=== PATIENT | female | born 1960 | race Caucasian/White ===

== ENCOUNTER 2017-06-05 16:51 | Inpatient (IN) | payer OTHER ==
[~2017-06-05] VITALS: Ht 167.6 cm; Wt 69.8 kg
[2017-06-05] MEDS ORDERED: PROMETHAZINE HCL INJ 12.5 MG in SODIUM CHLORIDE 0.9% 50ML 50 ML IV STA (17:07)
[2017-06-05] MEDS ORDERED: SODIUM CHLORIDE 0.9% 1000ML 1,000 ML IV STA (17:07)
[2017-06-05] MEDS ORDERED: LORAZEPAM 2 MG/ML 1 ML VIAL IV STA (17:07)
--- NOTE | 2017-06-05 17:12 | EMERGENCY ROOM VISIT NOTE ---
History Report prepared by Aideeibe: Patrizia Murdock Under the Supervision of: Dr. Simone Rush D.O. First contact with patient: 17:03 Chief Complaint: OTHER COMPLAINT Stated Complaint: SHAKES/HEADACHE / [facility] History of Present Illness The patient is a 56 year old female who presents to the Emergency Room with complaints of a persistent illness that started earlier today. She was brought to the ED via EMS. She states she was at work earlier this afternoon when she started to feel "shaky" and experienced a headache. She asked a coworker to check her blood pressure and reports it was around 180 systolic, so she decided to go to a local urgent care clinic in [place]. At the urgent care clinic, she was referred to the ED for further evaluation. She reports both of her legs feel "tingly". The patient admits to a history of anxiety and states she takes daily medication for it. She notes today's symptoms do not feel like her usual anxiety attack. The patient denies any recent fevers or cough or cold symptoms. Source of History: patient Onset: Earlier today Position: other (global) Timing: other (persistent) Associated Symptoms: + numbness (numbness in both legs), No fevers, No cough (cough or cold symptoms) Review of Systems See HPI for pertinent positives & negatives. A total of 10 systems reviewed and were otherwise negative. Past Medical & Surgical Medical Problems: (1) Anxiety (2) Diverticulitis (3) Hypertension (4) Insomnia (5) Stroke (6) Stroke-like symptoms Surgical Problems: (1) History of appendectomy (2) History of total hysterectomy Social History Smokeless Tobacco Use: No Alcohol Use: none Drug Use: none Marital Status: Housing Status: lives with family Occupation Status: employed Current/Historical Medications Scheduled Alprazolam (Xanax), 1 MG PO HS Alprazolam (Xanax), 0.5 MG PO UD Aspirin (Aspirin Ec), 81 MG PO DAILY Atorvastatin (Lipitor), 10 MG PO DAILY Allergies Coded Allergies: Penicillins (Verified Allergy, Intermediate, Hives, 06/05/17) Venlafaxine (Verified Allergy, Intermediate, Hives, 06/05/17) Physical Exam Vital Signs Date Time Temp Pulse Resp B/P (MAP) Pulse Ox O2 Delivery O2 Flow Rate FiO2 06/05/17 19:00 62 16 117/80 97 Room Air 7/14/17 17:12 60 06/05/17 17:09 99 Room Air 06/05/17 17:09 99 Room Air 06/05/17 17:03 36.8 74 18 130/93 99 Room Air Physical Exam GENERAL: Patient is awake, alert, very anxious appearing, but in no acute distress and patient is resting comfortably. EYES: The conjunctivae are clear. The pupils are round and reactive. EARS, NOSE, MOUTH AND THROAT: The nose is without any evidence of any deformity. Mucous membranes are moist tongue is midline NECK: The neck is nontender and supple. RESPIRATORY: Normal respiratory effort is noted there is no evidence of wheezing rhonchi or rales CARDIOVASCULAR: Regular rate and rhythm noted there no murmurs rubs or gallops normal S1 normal S2 GASTROINTESTINAL: The abdomen is soft. Bowel sounds are present in all quadrants. Abdomen is nontender PELVIS: The Pelvis is stable. No tenderness to palpation is noted. BACK: No midline tenderness or or step-off noted range of motion in flexion extension as well as rotation no signs of muscle spasm noted MUSCULOSKELETAL/EXTREMITIES: There is no evidence of gross deformity full range of motion is noted in the hips and shoulders SKIN: There is no obvious evidence of any rash. There are no petechiae, pallor or cyanosis noted. NEUROLOGIC: Patient is awake, alert and oriented x3 The patient is tremulous. Strength is symmetric patellar reflexes are 2+ bilaterally Medical Decision & Procedures ER Provider Diagnostic Interpretation: Radiology results as stated below per my review and radiologist interpretation: CHEST ONE VIEW PORTABLE CLINICAL HISTORY: Altered mental status. Weakness. COMPARISON STUDY: No previous studies for comparison. FINDINGS: There is no pneumothorax or pleural effusion. There is no consolidation to suggest pneumonia. Pulmonary vascularity is normal. There is an elongated 1.7 x 0.6 cm nodular density which projects superolateral to the right hilum. Cardiac size is normal. Mediastinal contours are normal. IMPRESSION: 1. No acute cardiopulmonary findings. 2. 1.7 x 0.6 cm elongated nodular density which projects superolateral to the right hilum. This could reflect artifact, vessel or a pulmonary nodule. Follow-up nonemergent PA and shallow oblique radiographs of the chest are recommended. Electronically signed by: Km Velasquez M.D. 06/05/2017 5:28 PM HEAD WITHOUT CONTRAST (CT) CT DOSE: 537.48 mGy.cm HISTORY: Mental status change EVALUATE ALTERED MENTAL STATUS/WEAKNESS TECHNIQUE: Multiaxial CT images of the head were performed without the use of intravenous contrast. Comparison: None. Findings: The paranasal sinuses and mastoid air cells are clear. The calvarium and skull base are intact. The ventricles and sulci are within normal limits. There is no mass, hematoma, or midline shift.. 8 mm hypodensity of the left paraventricular region. There is related to a subacute infarct. No evidence for acute intracranial hemorrhage. Impression: 8 mm hypodensity left periventricular region suggestive of a subacute infarct. No evidence for acute intracranial hemorrhage Electronically signed by: Eleazar Bay M.D. 06/05/2017 6:09 PM Laboratory Results 06/05/17 17:00 Red Blood Count 4.37, Mean Corpuscular Volume 94.7, Mean Corpuscular Hemoglobin 30.9, Mean Corpuscular Hemoglobin Concent 32.6, Mean Platelet Volume 10.1, Neutrophils (%) (Auto) 66.8, Lymphocytes (%) (Auto) 24.8, Monocytes (%) (Auto) 7.3, Eosinophils (%) (Auto) 0.7, Basophils (%) (Auto) 0.4, Neutrophils # (Auto) 5.11, Lymphocytes # (Auto) 1.90, Monocytes # (Auto) 0.56, Eosinophils # (Auto) 0.05, Basophils # (Auto) 0.03 06/05/17 17:00 Test 06/05/17 17:00 06/05/17 18:00 White Blood Count 7.65 K/uL (4.8-10.8) Red Blood Count 4.37 M/uL (4.2-5.4) Hemoglobin 13.5 g/dL (12.0-16.0) Hematocrit 41.4 % (37-47) Mean Corpuscular Volume 94.7 fL (80-100) Mean Corpuscular Hemoglobin 30.9 pg (25-34) Mean Corpuscular Hemoglobin Concent 32.6 g/dl (32-36) Platelet Count 264 K/uL (130-400) Mean Platelet Volume 10.1 fL (7.4-10.4) Neutrophils (%) (Auto) 66.8 % Lymphocytes (%) (Auto) 24.8 % Monocytes (%) (Auto) 7.3 % Eosinophils (%) (Auto) 0.7 % Basophils (%) (Auto) 0.4 % Neutrophils # (Auto) 5.11 K/uL (1.4-6.5) Lymphocytes # (Auto) 1.90 K/uL (1.2-3.4) Monocytes # (Auto) 0.56 K/uL (0.11-0.59) Eosinophils # (Auto) 0.05 K/uL (0-0.5) Basophils # (Auto) 0.03 K/uL (0-0.2) RDW Standard Deviation 45.5 fL (36.4-46.3) RDW Coefficient of Variation 13.1 % (11.5-14.5) Immature Granulocyte % (Auto) 0.0 % Immature Granulocyte # (Auto) 0.00 K/uL (0.00-0.02) Prothrombin Time 10.5 SECONDS (9.0-12.0) Prothromb Time International Ratio 1.0 (0.9-1.1) Activated Partial Thromboplast Time 24.9 SECONDS (21.0-31.0) Partial Thromboplastin Ratio 1.0 Anion Gap 11.0 mmol/L (3-11) Est Creatinine Clear Calc Drug Dose 81.8 ml/min Estimated GFR () 109.6 Estimated GFR (Non- 94.6 BUN/Creatinine Ratio 10.8 (10-20) Calcium Level 9.4 mg/dl (8.5-10.1) Magnesium Level 2.4 mg/dl (1.8-2.4) Total Bilirubin 0.3 mg/dl (0.2-1) Direct Bilirubin < 0.1 mg/dl (0-0.2) Aspartate Amino Transf (AST/SGOT) < 3 U/L (15-37) Alanine Aminotransferase (ALT/SGPT) 18 U/L (12-78) Alkaline Phosphatase 64 U/L (45-117) Troponin I < 0.015 ng/ml (0-0.045) Total Protein 7.2 gm/dl (6.4-8.2) Albumin 4.2 gm/dl (3.4-5.0) Thyroid Stimulating Hormone (TSH) 2.090 uIu/ml (0.300-4.500) Lyme Disease IgG Antibody NEG (NEG) Lyme Disease IgM Antibody NEG (NEG) Urine Color YELLOW Urine Appearance CLEAR (CLEAR) Urine pH 8.0 (4.5-7.5) Urine Specific [place] 1.008 (1.000-1.030) Urine Protein NEG (NEG) Urine Glucose (UA) NEG (NEG) Urine Ketones NEG (NEG) Urine Occult Blood NEG (NEG) Urine Nitrite NEG (NEG) Urine Bilirubin NEG (NEG) Urine Urobilinogen NEG (NEG) Urine Leukocyte Esterase NEG (NEG) Laboratory results per my review. Medications Administered Medications (Trade) Dose Ordered Sig/Shania Route Start Time Stop Time Status Last Admin Dose Admin Sodium Chloride 1,000 ml @ 999 mls/hr Q1H1M STAT IV 06/05/17 17:07 06/05/17 18:07 DC 06/05/17 17:54 999 MLS/HR Promethazine HCl 12.5 mg/Sodium Chloride 50.5 ml @ 204 mls/hr NOW STAT IV 06/05/17 17:07 06/05/17 17:21 DC 06/05/17 17:54 204 MLS/HR Lorazepam (Ativan Inj) 0.5 mg NOW STAT IV 06/05/17 17:07 06/05/17 17:09 DC 06/05/17 17:54 0.5 MG ECG Indication: weakness Rate (beats per minute): 71 Rhythm: normal sinus (normal sinus rhythm) Findings: RBBB, other (No PVC's) Comparison ECG Date: no prior available ED Course 1706: The patient was evaluated in room A3. A complete history and physical examination were performed. 1707: Lorazepam 0.5 mg IV, Promethazine HCl 12.5 mg/NSS 50.5 ml @ 204 mls/hr IV , NSS 1000 ml @ 999 mls/hr IV. 1829: I reevaluated the patient. She is resting comfortably. I discussed her results and my recommendation she remain in the hospital for further evaluation and management and she verbalized complete understanding and agreement. 1835: I discussed the patients case with Dr. Benítez, [facility] Hospitalist. The patient will be further evaluated. Medical Decision Medication Reconciliation: I attest that I have personally reviewed the patient' s current medications list. Blood pressure screening: Patient was found to have an elevated blood pressure and was referred to their primary doctor for recheck and further treatment. Prior records/ancillary studies reviewed and summarized above. Nursing notes reviewed. Differential diagnosis: Etiologies such as metabolic, infection, hypo/hyperglycemia, electrolyte abnormalities, cardiac sources, intracerebral event, toxicologic, neurologic, as well as others were entertained. The patient is a 56-year-old female who presented to the emergency department for an evaluation of headache. The patient describes an acute headache which began earlier in the day. She was evaluated and an urgent care center and sent to the emergency department for further evaluation. She had no focal neurologic deficit but because her symptoms and reported elevated blood pressure CT of the brain was obtained. The CT did show some signs of a possible subacute infarct. I discussed the patient's laboratory and radiographic studies with her. She was treated with IV fluids and IV antiemetics in the emergency department. She was also given medication for anxiety. On subsequent reevaluation her condition had not deteriorated. I discussed the patient's case with the on-call [facility] hospitalist group. They've agreed to evaluate the patient in emergency apartment for further management and disposition. Consults Time Called: 1829 Consulting Physician: Dr. Benítez, [facility] Hospitalist Returned Call: 1834 I discussed the patients case with Dr. Del Rosario [facility] Hospitalist. The patient will be further evaluated. Impression Primary Impression: CVA (cerebral vascular accident) Additional Impressions: Abnormal chest x-ray Acute headache Scribe Attestation The scribe's documentation has been prepared under my direction and personally reviewed by me in its entirety. I confirm that the note above accurately reflects all work, treatment, procedures, and medical decision making performed by me. Departure Information Dispostion Being Evaluated By Hospitalist Referrals No Doctor, Assigned (PCP) Patient Instructions My [facility] Health Problem Qualifiers
[2017-06-05 17:15] LABS: BASO % 0.4 %; BASO ABS # 0.03 K/uL (0-0.2); COMPLETE YES; EOS % 0.7 %; HEMATOCRIT 41.4 % (37-47); LYMPH % 24.8 %; MEAN CELL VOLUME 94.7 fL (80-100); MEAN CORPUSCULAR HEMOGLOBIN 30.9 pg (25-34); MEAN CORPUSCULAR HGB CONC 32.6 g/dl (32-36); MEAN PLATELET VOLUME 10.1 fL (7.4-10.4); MONO % 7.3 %; NEUT % 66.8 %; PLATELET COUNT 264 K/uL (130-400); RED BLOOD COUNT 4.37 M/uL (4.2-5.4); WHITE BLOOD COUNT 7.65 K/uL (4.8-10.8)
[2017-06-05 17:23] LABS: PROTHROMBIN TIME (PATIENT) 10.5 SECONDS (9.0-12.0)
--- NOTE | 2017-06-05 17:29 | DIAGNOSTIC IMAGING REPORT ---
CHEST ONE VIEW PORTABLE CLINICAL HISTORY: Altered mental status. Weakness. COMPARISON STUDY: No previous studies for comparison. FINDINGS: There is no pneumothorax or pleural effusion. There is no consolidation to suggest pneumonia. Pulmonary vascularity is normal. There is an elongated 1.7 x 0.6 cm nodular density which projects superolateral to the right hilum. Cardiac size is normal. Mediastinal contours are normal. IMPRESSION: 1. No acute cardiopulmonary findings. 2. 1.7 x 0.6 cm elongated nodular density which projects superolateral to the right hilum. This could reflect artifact, vessel or a pulmonary nodule. Follow-up nonemergent PA and shallow oblique radiographs of the chest are recommended. Electronically signed by: Km Velasquez M.D. 06/05/2017 5:28 PM Dictated Date/Time: 06/05/2017 5:25 PM
[2017-06-05] MEDS ORDERED: ASPI81TA28 PO (17:38)
[2017-06-05 17:43] LABS: ALT/SGPT 18 U/L (12-78); AST/SGOT < 3 U/L (15-37); BLOOD UREA NITROGEN 8 mg/dl (7-18); BUN/CREATININE RATIO 10.8 (10-20); CALCIUM 9.4 mg/dl (8.5-10.1); CARBON DIOXIDE 21 mmol/L (21-32); CHLORIDE 110 mmol/L (98-107); CREATININE 0.71 mg/dl (0.60-1.20); GLUCOSE 91 mg/dl (70-99); MAGNESIUM 2.4 mg/dl (1.8-2.4); SODIUM 142 mmol/L (136-145)
[2017-06-05] MEDS ORDERED: ATOR10TA88 PO (17:48)
[2017-06-05] MEDS ORDERED: ALPR1TAB3 PO (17:48)
[2017-06-05 17:54] LABS: ALKALINE PHOSPHATASE 64 U/L (45-117)
--- NOTE | 2017-06-05 18:10 | DIAGNOSTIC IMAGING REPORT ---
HEAD WITHOUT CONTRAST (CT) CT DOSE: 537.48 mGy.cm HISTORY: Mental status change EVALUATE ALTERED MENTAL STATUS/WEAKNESS TECHNIQUE: Multiaxial CT images of the head were performed without the use of intravenous contrast. Comparison: None. Findings: The paranasal sinuses and mastoid air cells are clear. The calvarium and skull base are intact. The ventricles and sulci are within normal limits. There is no mass, hematoma, or midline shift.. 8 mm hypodensity of the left paraventricular region. There is related to a subacute infarct. No evidence for acute intracranial hemorrhage. Impression: 8 mm hypodensity left periventricular region suggestive of a subacute infarct. No evidence for acute intracranial hemorrhage The above report was generated using voice recognition software. It may contain grammatical, syntax or spelling errors. Electronically signed by: Eleazar Bay M.D. 06/05/2017 6:09 PM Dictated Date/Time: 06/05/2017 6:06 PM
[2017-06-05 18:19] LABS: URINE APPEARANCE CLEAR (CLEAR); URINE BILIRUBIN NEG (NEG); URINE COLOR YELLOW; URINE NITRITE NEG (NEG); URINE SPECIFIC GRAVITY 1.008 (1.000-1.030); UROBILINOGEN NEG (NEG)
[2017-06-05 18:22] LABS: MANUAL MICROSCOPIC REQUIRED? NO; REVIEW REQ? NO
[2017-06-05 18:40] LABS: LYME DISEASE AB IGG NEG (NEG); LYME DISEASE AB IGM NEG (NEG)
--- NOTE | 2017-06-05 20:11 | History and Physical ---
History & Physical Date & Time of Service: Jun 05, 2017 at 20:09 Chief Complaint: Shakes/Headache / [facility] Primary Care Physician: No Doctor, Assigned History of Present Illness Source: patient 56 yo F, smoker, no previous stroke, noticed earlier today she had a severe headache, frontal, 8/10, which then progressed to full body weakness. She is unable to say if it was left or right sided. At the time she was doing her usual work. She said the symptoms lasted about 15 minutes, and took a while to go away. The weakness was associated with tremulous activity of all her limbs. She reports she has not slept well this week, because she works at a [employer]. She went to an Urgent Care, where they were concerned for [place], and was transferred here. Headache still persists but weakness has resolved. Past Medical/Surgical History PMHx: - None PSHx: - None Family History No FHx of stroke, [place], diabetes, or HTN Social History Smoking Status: Current Some Day Smoker (Smokes about 5 cigarettes/ day) Smokeless Tobacco Use: No Drug Use: none Marital Status: Housing status: lives with family Occupational Status: employed Allergies Coded Allergies: Penicillins (Verified Allergy, Intermediate, Hives, 06/05/17) Venlafaxine (Verified Allergy, Intermediate, Hives, 06/05/17) Home Medications Scheduled Alprazolam (Xanax), 1 MG PO HS Alprazolam (Xanax), 0.5 MG PO UD Atorvastatin (Atorvastatin Calcium), 80 MG PO HS Clopidogrel Bisulfate (Clopidogrel), 75 MG PO QAM Nicotine (Nicoderm Cq 7 Mg Patch), 1 PATCH TD QAM Scheduled PRN Oxycodone/Acetaminophen 5MG/325MG (Percocet 5MG/325MG), 1 TAB PO Q6HWA PRN for Pain Review of Systems See HPI for pertinent positives & negatives. A total of 10 systems reviewed and were otherwise negative. Physical Exam Vital Signs Date Time Temp Pulse Resp B/P (MAP) Pulse Ox O2 Delivery O2 Flow Rate FiO2 06/05/17 19:00 62 16 117/80 97 Room Air 06/05/17 17:12 60 06/05/17 17:09 99 Room Air 06/05/17 17:09 99 Room Air 06/05/17 17:03 36.8 74 18 130/93 99 Room Air General Appearance: WD/WN, no apparent distress Head: normocephalic, atraumatic Eyes: normal inspection, PERRL ENT: hearing grossly normal Neck: supple, no JVD Respiratory/Chest: lungs clear, normal breath sounds, no respiratory distress Cardiovascular: regular rate, rhythm, no murmur, normal peripheral pulses Abdomen/GI: normal bowel sounds, non tender, soft Back: no CVA tenderness, no muscle spasm, normal range of motion Extremities/Musculoskelatal: normal inspection, no calf tenderness, no pedal edema Neurologic/Psych: behavioral health professional II-XII nml as tested, no motor/sensory deficits, alert Skin: no rash Diagnostics Laboratory Results Results Past 24 Hours Test 06/05/17 17:00 06/05/17 18:00 06/05/17 20:02 Range/Units White Blood Count 7.65 4.8-10.8 K/uL Red Blood Count 4.37 4.2-5.4 M/uL Hemoglobin 13.5 12.0-16.0 g/dL Hematocrit 41.4 37-47 % Mean Corpuscular Volume 94.7 80-100 fL Mean Corpuscular Hemoglobin 30.9 25-34 pg Mean Corpuscular Hemoglobin Concent 32.6 32-36 g/dl Platelet Count 264 130-400 K/uL Mean Platelet Volume 10.1 7.4-10.4 fL Neutrophils (%) (Auto) 66.8 % Lymphocytes (%) (Auto) 24.8 % Monocytes (%) (Auto) 7.3 % Eosinophils (%) (Auto) 0.7 % Basophils (%) (Auto) 0.4 % Neutrophils # (Auto) 5.11 1.4-6.5 K/uL Lymphocytes # (Auto) 1.90 1.2-3.4 K/uL Monocytes # (Auto) 0.56 0.11-0.59 K/uL Eosinophils # (Auto) 0.05 0-0.5 K/uL Basophils # (Auto) 0.03 0-0.2 K/uL RDW Standard Deviation 45.5 36.4-46.3 fL RDW Coefficient of Variation 13.1 11.5-14.5 % Immature Granulocyte % (Auto) 0.0 % Immature Granulocyte # (Auto) 0.00 0.00-0.02 K/uL Prothrombin Time 10.5 9.0-12.0 SECONDS Prothromb Time International Ratio 1.0 0.9-1.1 Activated Partial Thromboplast Time 24.9 21.0-31.0 SECONDS Partial Thromboplastin Ratio 1.0 Sodium Level 142 136-145 mmol/L Potassium Level 4.0 3.5-5.1 mmol/L Chloride Level 110 98-107 mmol/L Carbon Dioxide Level 21 21-32 mmol/L Anion Gap 11.0 3-11 mmol/L Blood Urea Nitrogen 8 7-18 mg/dl Creatinine 0.71 0.60-1.20 mg/dl Est Creatinine Clear Calc Drug Dose 81.8 ml/min Estimated GFR () 109.6 Estimated GFR (Non- 94.6 BUN/Creatinine Ratio 10.8 10-20 Random Glucose 91 70-99 mg/dl Calcium Level 9.4 8.5-10.1 mg/dl Magnesium Level 2.4 1.8-2.4 mg/dl Total Bilirubin 0.3 0.2-1 mg/dl Direct Bilirubin < 0.1 0-0.2 mg/dl Aspartate Amino Transf (AST/SGOT) < 3 15-37 U/L Alanine Aminotransferase (ALT/SGPT) 18 12-78 U/L Alkaline Phosphatase 64 45-117 U/L Troponin I < 0.015 0-0.045 ng/ml Total Protein 7.2 6.4-8.2 gm/dl Albumin 4.2 3.4-5.0 gm/dl Thyroid Stimulating Hormone (TSH) 2.090 0.300-4.500 uIu/ml Lyme Disease IgG Antibody NEG NEG Lyme Disease IgM Antibody NEG NEG Urine Color YELLOW Urine Appearance CLEAR CLEAR Urine pH 8.0 4.5-7.5 Urine Specific [place] 1.008 1.000-1.030 Urine Protein NEG NEG Urine Glucose (UA) NEG NEG Urine Ketones NEG NEG Urine Occult Blood NEG NEG Urine Nitrite NEG NEG Urine Bilirubin NEG NEG Urine Urobilinogen NEG NEG Urine Leukocyte Esterase NEG NEG Diagnostic Radiology HEAD CT: Impression: 8 mm hypodensity left periventricular region suggestive of a subacute infarct. No evidence for acute intracranial hemorrhage CXR: IMPRESSION: 1. No acute cardiopulmonary findings. 2. 1.7 x 0.6 cm elongated nodular density which projects superolateral to the right hilum. This could reflect artifact, vessel or a pulmonary nodule. Follow-up nonemergent PA and shallow oblique radiographs of the chest are recommended. EKG Normal sinus rhythm Right bundle branch block Abnormal ECG No previous ECGs available Impression Assessment and Plan 56 yo F with risk factors of smoking & hyperlipidemia who presents with headache and full body weakness, found to have a subacute stroke. Stroke - Will continue 81mg Aspirin - Neurology consult - Will check an HbA1c & lipids to assess modifiable risk factors - MRI Brain - Telemetry monitoring - Will obtain carotid dopplers and cardiac echo - Will defer checking hypercoaguable workup to primary service / after discussion w/Neuro as patient may have one, but is not under 50, and has other known risk factor (smoking & hyperlipidemia) Hyperlipidemia - Will increase statin from 10mg Lipitor to 80mg Headache - Tylenol / Percocet PRN - Continue to monitor ?Pulmonary nodule on CXR - Will get 2 view / Oblique CXR in AM VTE: Lovenox CODE STATUS: FULL Dispo: Telemetry Attending Addendum: I physically seen and examined this patient, have supervised the medical residents activities, and agree with the H&P as noted above with the following exceptions: NONE The patient is awake, well-developed and adequately nourished, alert and oriented 3 but slow to respond, normocephalic and atraumatic, lying in bed and in no acute distress. Primary complaint is frontal headache. HEENT--PERRL, EOMI, mucous membranes and oropharynx dry. Neck--supple, no JVD or bruits, thyroid normal, trachea midline, no adenopathy. Heart--normal S1 and S2, no extra beats, no murmurs, rubs or gallops. Lungs--clear bilaterally with good air movement, no respiratory distress, no accessory muscle use. Abdomen--normal bowel sounds and soft, nontender and nondistended, no hernias or masses, no organomegaly. Extremities--no cyanosis, clubbing or edema. There are good distal pulses b/l. Dermatologic--normal skin turgor, normal color, warm and dry, no abnormal lymph nodes, no rash. Neurologic--cranial nerves II through XII grossly intact, motor and sensory examination normal. Rheumatologic--normal range of motion, nontender, muscles and joints. Psychiatric--normal affect. Assessment and Plan: 1. Subacute 8mm left periventricular infarct--admitted through CVA without TPA protocol. Order MRI brain combo, MRA neck combo, MRA of head without contrast. The patient will be admitted to telemetry for serial cardiac enzymes, cardiac rhythm monitoring and a 2-D echocardiogram with Dopplers. Consult nephrology social worker, PT, OT, speech, neurology. Check hemoglobin A1c and fasting lipid profile. Continue aspirin 81 mg by mouth daily. High-dose statin. Level of Care Telemetry Resuscitation Status FULL RESUSCITATION VTE Prophylaxis VTE Risk Assessment Done? Y/N: Yes Risk Level: Moderate Resident Tracking Resident Involvement: Resident Care Provided Care Provided: Adult Hospital Medicine
[2017-06-05] MEDS ORDERED: PHARMACIST DISCHARGE MED REC CONSULT PRN (20:15)
[2017-06-05] MEDS ORDERED: ZOLPIDEM TARTRATE 5 MG TAB PO PRN (20:15)
[2017-06-05] MEDS ORDERED: ALUMINUM/MAGNESIUM/SIMETH (MAALOX MAX) 30 ML UDC PO PRN (20:15)
[2017-06-05] MEDS ORDERED: POLYETHYLENE (MIRALAX) 17 GM PACK PO PRN (20:15)
[2017-06-05] MEDS ORDERED: MAGNESIUM HYDROXIDE SUSP 30 ML UDC PO PRN (20:15)
[2017-06-05] MEDS ORDERED: ACETAMINOPHEN 325 MG TAB PO PRN (20:15)
[2017-06-05] MEDS ORDERED: NITROGLYCERIN 0.4 MG SL PER TAB CHARGE SL PRN (20:15)
[2017-06-05] MEDS: ONDANSETRON INJ 2 MG/ML 2 ML VIAL IV PRN (20:45)
--- NOTE | 2017-06-05 21:44 | DIAGNOSTIC IMAGING REPORT ---
BRAIN COMBO CLINICAL HISTORY: Stroke COMPARISON STUDY: CT same date TECHNIQUE: Utilizing a 1.5 Haley magnet and dedicated coil, multiplanar, multiecho imaging of the brain was performed pre and postcontrast administration. IV administration of 8.5 mL of Gadavist contrast was uneventful. FINDINGS: No evidence for an acute ischemic event on diffusion-weighted imaging. CT findings appear to relate to old small periventricular infarct. Multiple foci of increased signal on the periventricular deep white matter regions are present. This may be consistent with chronic small vessel change. No significant postcontrast enhancement. Ventricular system is midline. IMPRESSION: 1. No evidence for an acute ischemic process. 2. Considerable chronic small vessel change throughout both cerebral hemispheres. 3. No evidence for abnormal postcontrast enhancement. The above report was generated using voice recognition software. It may contain grammatical, syntax or spelling errors. Electronically signed by: Eleazar Bay M.D. 06/05/2017 9:42 PM Dictated Date/Time: 06/05/2017 9:39 PM
[2017-06-05 22:05] VITALS: BP 124/78; PULSE 60; TEMP 36.7; O2SAT 96; Ht 167.6 cm; Wt 69.8 kg
[2017-06-05] MEDS ORDERED: MoRPHine SULFATE 2 MG/ML CARP IV STA (22:33)
[2017-06-05] MEDS: ATORVASTATIN 40 MG TAB PO SCH (23:33)
[2017-06-05 23:59] VITALS: O2SAT 96
[2017-06-06] VITALS (10 sets, daily range): BP systolic 105–123; BP diastolic 61–81; PULSE 59–66; TEMP 36.7–36.9; O2SAT 95–97
[2017-06-06] MEDS: MoRPHine SULFATE 2 MG/ML CARP IV PRN ×2 (02:19→07:15)
--- NOTE | 2017-06-06 05:42 | DIAGNOSTIC IMAGING REPORT ---
CAROTID DOPPLER NECK ART HISTORY: Mental status change Stroke COMPARISON: None. TECHNIQUE: Real-time, grayscale, and color Doppler sonography of the carotid arteries was performed. Imaging reviewed in the transverse and longitudinal planes. All measurements were calculated based on NASCET criteria. FINDINGS: Antegrade flow is seen in the bilateral vertebral arteries. The brachial pressures are hemodynamically similar. Moderate plaque formation bilaterally The peak systolic velocity within the right ICA is 158. The right systolic ratio is 1.4. The peak systolic velocity within the left ICA is 89. The left systolic ratio is 0.8. IMPRESSION: 50% narrowing right internal carotid artery. No additional significant stenosis. Moderate plaque formation bilaterally. The above report was generated using voice recognition software. It may contain grammatical, syntax or spelling errors. Electronically signed by: Eleazar Bay M.D. 06/06/2017 5:41 AM Dictated Date/Time: 06/06/2017 5:39 AM
--- NOTE | 2017-06-06 05:45 | DIAGNOSTIC IMAGING REPORT ---
Chest-pa, lat AND OBLIQUE VIEWS CLINICAL HISTORY: NODULE ON PREVIOUS FRAYS NEED OBLIQUE VIEWS WELL COMPARISON STUDY: 06/04/2017 FINDINGS: The lungs are clear. Oblique projections demonstrate calcification of the right first rib costochondral cartilage. This accounts for the nodularity described previously. Diaphragms are smooth. IMPRESSION: Negative study. Benign calcification right costochondral cartilage accounting for the nodularity seen on the prior study The above report was generated using voice recognition software. It may contain grammatical, syntax or spelling errors. Electronically signed by: Eleazar Bay M.D. 06/06/2017 5:43 AM Dictated Date/Time: 06/06/2017 5:42 AM
[2017-06-06] MEDS: ENOXAPARIN 40 MG/0.4 ML SYR SQ SCH (07:16)
[2017-06-06 07:39] LABS: ESTIMATED AVERAGE GLUCOSE 111 mg/dl; HA1C FLAG Normal (Normal)
[2017-06-06 07:39] LABS: BASO % 0.5 %; BASO ABS # 0.03 K/uL (0-0.2); COMPLETE YES; HEMATOCRIT 36.5 % (37-47); IG% 0.2 %; LYMPH % 36.7 %; LYMPH ABS # 2.39 K/uL (1.2-3.4); MEAN CELL VOLUME 96.3 fL (80-100); MEAN CORPUSCULAR HEMOGLOBIN 31.1 pg (25-34); MEAN CORPUSCULAR HGB CONC 32.3 g/dl (32-36); MEAN PLATELET VOLUME 9.7 fL (7.4-10.4); MONO % 6.8 %; NEUT % 53.8 %; PLATELET COUNT 227 K/uL (130-400); RED BLOOD COUNT 3.79 M/uL (4.2-5.4); WHITE BLOOD COUNT 6.51 K/uL (4.8-10.8)
--- NOTE | 2017-06-06 08:31 | Family Medicine Progress Note ---
Progress Note Date of Service Jun 06, 2017. 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 Says her headache is ongoing but intensity is relieved by the morphine. Described as occipital pain, occasionally radiating over the top of her head. Also complaining of lightheadedness upon sitting or standing, although she claims she is taking in adequate PO fluid. States she is feeling very anxious, as she has not received her home dose of alprazolam. Otherwise states tolerating diet, poor sleep in hospital, and no changes in voiding/stooling from baseline. Patient denies changes in vision, radha-body weakness/paralysis, facial drooping , slurred speech. She also denies photo/phonophobia, aura, watery eyes, runny nose. She admits she has multiple stressors in life. ROS unremarkable except as noted above Objective Vital Signs Date Time Temp Pulse Resp B/P (MAP) Pulse Ox O2 Delivery O2 Flow Rate FiO2 06/06/17 08:00 96 Room Air 06/06/17 07:10 36.7 66 20 110/68 (82) 95 Room Air 06/06/17 04:00 95 Room Air 06/06/17 03:52 36.7 59 20 105/65 (78) 95 Room Air 06/05/17 23:59 96 Room Air 06/05/17 22:05 36.7 60 18 124/78 96 Room Air 06/05/17 20:43 66 19 139/77 98 Room Air 06/05/17 19:00 62 16 117/80 97 Room Air 06/05/17 17:12 60 06/05/17 17:09 99 Room Air 06/05/17 17:09 99 Room Air 06/05/17 17:03 36.8 74 18 130/93 99 Room Air Physical Exam General Appearance: WD/WN, no apparent distress Eyes: normal inspection ENT: hearing grossly normal Neck: supple, no adenopathy, + pertinent finding (tense/sensitive occiput muscles) Respiratory/Chest: lungs clear, normal breath sounds, no respiratory distress, no accessory muscle use Cardiovascular: regular rate, rhythm, no murmur Abdomen: normal bowel sounds, non tender, soft, no organomegaly Extremities: normal inspection, no pedal edema, no calf tenderness Neurologic/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: 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 as tested, no motor/sensory deficits, alert, normal mood/affect, oriented x 3 Skin: normal color, warm/dry, no rash Laboratory Results Results Past 24 Hours Test 06/06/17 07:12 06/06/17 10:18 Range/Units White Blood Count 6.51 4.8-10.8 K/uL Red Blood Count 3.79 4.2-5.4 M/uL Hemoglobin 11.8 12.0-16.0 g/dL Hematocrit 36.5 37-47 % Mean Corpuscular Volume 96.3 80-100 fL Mean Corpuscular Hemoglobin 31.1 25-34 pg Mean Corpuscular Hemoglobin Concent 32.3 32-36 g/dl Platelet Count 227 130-400 K/uL Mean Platelet Volume 9.7 7.4-10.4 fL Neutrophils (%) (Auto) 53.8 % Lymphocytes (%) (Auto) 36.7 % Monocytes (%) (Auto) 6.8 % Eosinophils (%) (Auto) 2.0 % Basophils (%) (Auto) 0.5 % Neutrophils # (Auto) 3.51 1.4-6.5 K/uL Lymphocytes # (Auto) 2.39 1.2-3.4 K/uL Monocytes # (Auto) 0.44 0.11-0.59 K/uL Eosinophils # (Auto) 0.13 0-0.5 K/uL Basophils # (Auto) 0.03 0-0.2 K/uL RDW Standard Deviation 45.8 36.4-46.3 fL RDW Coefficient of Variation 13.1 11.5-14.5 % Immature Granulocyte % (Auto) 0.2 % Immature Granulocyte # (Auto) 0.01 0.00-0.02 K/uL Sodium Level 143 136-145 mmol/L Potassium Level 3.9 3.5-5.1 mmol/L Chloride Level 112 98-107 mmol/L Carbon Dioxide Level 27 21-32 mmol/L Anion Gap 4.0 3-11 mmol/L Blood Urea Nitrogen 7 7-18 mg/dl Creatinine 0.76 0.60-1.20 mg/dl Est Creatinine Clear Calc Drug Dose 76.4 ml/min Estimated GFR () 100.9 Estimated GFR (Non- 87.1 BUN/Creatinine Ratio 9.2 10-20 Random Glucose 78 70-99 mg/dl Calcium Level 8.6 8.5-10.1 mg/dl Troponin I < 0.015 0-0.045 ng/ml Assessment and Plan 56 yo F smoker with HLD who presents with headache and full body weakness, found to have a subacute stroke on left periventricular region via imaging. Stroke - CT showed 8 mm hypodensity in left periventricular region without evidence for acute ICH, suggestive of a subacute infarct. Lack of acuity confirmed with brain MRI, which mainly showed diffuse chronic small vessel change. Carotid Doppler showed 50% narrowing of right internal carotid artery only, and moderate plaque formation bilaterally. Echo showed normal LV size, wall thickness, and function with EF 55-60% and normal wall motion. Mild aortic regurgitation, trace tricuspid regurgitation. Normal right ventricular systolic pressure and no interatrial shunt. Neurology consulted, recs appreciated. HbA1c 5.5 - Discontinue Aspirin 81mg, start clopidogrel 75mg daily, as per neurology - Check fasting lipids to assess modifiable risk factors. - Atorvastatin increased to 80mg (from 10mg home dose) - Advised for smoking cessation - Repeat carotid Doppler in 6 months Headache - Likely tension headache. Tender occiput muscles, with OMT soft tissue technique applied at bedside - Discontinue IV morphine - Continue acetaminophen 650mg q6h or Percocet 5/325mg q6h PRN pain - Alternate heat pack and ice pack, as per patient's preference Orthostatic symptoms - Check orthostatics - Encourage PO intake of fluids Hyperlipidemia - Continue atorvastatin 80mg - Will reassess dose once fasting lipids reported, but likely to go home on at least 40mg for plaque stabilization Smoking cessation Patient keen to quit immediately - Nicotine patch 7mg Pulmonary nodule on CXR - Initial CXR showed 1.7 x 0.6 cm elongated nodular density possibly artifact, vessel or a pulmonary nodule. Repeat PA lateral and shallow oblique radiographs reported negative study: benign calcification right costochondral cartilage VTE PPx - Enoxaparin Code status: Full resus Resident Physician Supervision Note: I interviewed and examined the patient. Discussed with Dr. Coronado and agree with findings and plan as documented in the note. Any exceptions or clarifications are listed here: None Documented By: [place] headache persists. no other compliants. all other ROS otherwise negative except for as above vitals noted appearing somewhat uncomfortable. L>R suboccipitals high tone/ tender/decreased ROM - occipital release done by R2 w my supervision ,then unwinding done by myself - improvement tension headache - OMT as above, pain meds as ordered cerebrovascular disease - nothing acute, secondary risk reduction as above Continued [facility] stay due to: inadequate oral pain control Discharge planning: home Resident Tracking Resident Involvement: Resident Care Provided Care Provided: Adult Hospital Medicine
[2017-06-06 08:50] LABS: BUN/CREATININE RATIO 9.2 (10-20); CALCIUM 8.6 mg/dl (8.5-10.1); CREATININE 0.76 mg/dl (0.60-1.20); POTASSIUM 3.9 mmol/L (3.5-5.1)
[2017-06-06] MEDS ORDERED: ASPIRIN 81 MG ECTAB PO SCH (09:00)
--- NOTE | 2017-06-06 09:26 | ECHOCARDIOGRAM REPORT ---
*NOTICE TO RECEIVING REPUBLICAN AGENCY This information is strictly Confidential and protected under [place] law. [place] law prohibits you from making any further disclosure of this information unless further disclosure is expressly permitted by the written consent of the person to whom it pertains or is authorized by law. A general authorization for the release of medical or other information is not sufficient for this purpose. Hospital accepts no responsibility if the information is made available to any other person, INCLUDING THE PATIENT. Interpretation Summary * Name: SAMARA GORMAN Study Date: 06/06/2017 07:15 AM BP: 110/68 mmHg * Patient Location: .2T\S\S229\S\2 HR: 55 * : 1960 (M/d/yyy) Gender: Female Height: 66 in * Age: 56 yrs Ethnicity: [place] Weight: 154 lb * Ordering Physician: Kylie Durán * Referring Physician: Self, Referred * Performed By: Samara Yin RDCS * * Reason For Study: STROKE * BSA: 1.8 m2 * -- Conclusions -- * The left ventricle is normal in size. * There is normal left ventricular wall thickness. * Left ventricular systolic function is normal. * Ejection Fraction = 55-60%. * The left ventricular wall motion is normal. * The aortic valve is trileaflet. * Mild aortic regurgitation. * The aortic root is normal size. * There is trace tricuspid regurgitation. * Right ventricular systolic pressure is normal. * Injection of contrast documented no interatrial shunt. Procedure Details * A saline contrast injection was performed to assess for cardiac shunting. * The injection was performed through an intravenous line in the right arm. * The attending nurse who injected the saline contrast was BAKARI STEINER RN. * A total of 20 cc of agitated saline was given. Left Ventricle * The left ventricle is normal in size. * There is normal left ventricular wall thickness. * Ejection Fraction = 55-60%. * Left ventricular systolic function is normal. * The left ventricular wall motion is normal. Right Ventricle * The right ventricle is normal in size and function. * There is normal right ventricular wall thickness. Atria * The left atrial size is normal. * Right atrial size is normal. * Injection of contrast documented no interatrial shunt. Mitral Valve * The mitral valve is normal in structure and function. * Significant mitral regurgitation is absent. Tricuspid Valve * The tricuspid valve is normal in structure and function. * There is trace tricuspid regurgitation. * Right ventricular systolic pressure is normal. Aortic Valve * The aortic valve is normal in structure and function. * The aortic valve is trileaflet. * No hemodynamically significant valvular aortic stenosis. * Mild aortic regurgitation. Pulmonic Valve * The pulmonary valve is not well seen, but the Doppler examination is normal without significant regurgitation or stenosis. * There is no pulmonic valvular regurgitation. Great Vessels * The aortic root is normal size. * No obvious dissection could be visualized. Pericardium/Pleural * There is no pericardial effusion. MMode 2D Measurements and Calculations IVSd 0.90 cm IVSs 1.2 cm LVIDd 4.2 cm LVIDs 3.0 cm LVPWd 1.2 cm LVPWs 1.6 cm IVS/LVPW 0.73 FS 28.3 % EDV(Teich) 79.0 ml ESV(Teich) 35.5 ml EF(Teich) 55.1 % EDV(cubed) 74.5 ml ESV(cubed) 27.5 ml EF(cubed) 63.2 % % IVS thick 32.0 % % LVPW thick 32.1 % LV mass(C)d 151.5 grams LV mass(C)dI 84.6 grams/m\S\2 LV mass(C)s 143.7 grams LV mass(C)sI 80.3 grams/m\S\2 SV(Teich) 43.5 ml SI(Teich) 24.3 ml/m\S\2 SV(cubed) 47.1 ml SI(cubed) 26.3 ml/m\S\2 Ao root diam 3.1 cm Ao root area 7.4 cm\S\2 LA dimension 2.9 cm LA/Ao 0.94 LVAd ap4 29.1 cm\S\2 LVLd ap4 8.0 cm EDV(MOD-sp4) 87.7 ml LVAs ap4 16.5 cm\S\2 LVLs ap4 6.2 cm ESV(MOD-sp4) 39.8 ml EF(MOD-sp4) 54.6 % LVAd ap2 28.7 cm\S\2 LVLd ap2 8.7 cm EDV(MOD-sp2) 79.6 ml LVAs ap2 15.3 cm\S\2 LVLs ap2 7.1 cm ESV(MOD-sp2) 29.0 ml EF(MOD-sp2) 63.6 % SV(MOD-sp4) 47.9 ml SI(MOD-sp4) 26.8 ml/m\S\2 SV(MOD-sp2) 50.6 ml SI(MOD-sp2) 28.3 ml/m\S\2 Doppler Measurements and Calculations MV E max mathew 73.2 cm/sec MV A max mathew 46.1 cm/sec MV E/A 1.6 MV dec time 0.23 sec Ao V2 max 132.9 cm/sec Ao max PG 7.1 mmHg Ao max PG (full) 2.6 mmHg AI max mathew 394.3 cm/sec AI max PG 62.2 mmHg AI dec slope 117.1 cm/sec\S\2 AI P1/2t 986.4 msec LV V1 max PG 4.5 mmHg LV V1 max 106.2 cm/sec TR max mathew 192.1 cm/sec
--- NOTE | 2017-06-06 09:33 | Neurology Consultation ---
Neurology Consultation Date of Consultation: Jun 06, 2017. Attending Physician: Rome Nj D.O. Primary Care Physician: No Doctor, Assigned Reason for Consultation: Patient is a 56-year-old, who was asked to see the request of Dr.'s Skinner, for neurologic consultation regarding possible stroke History of Present Illness Source: patient, caregiver, hospital records Patient tells me that she has never had a history of stroke, diabetes, heart disease, or hypertension. She does have some dyslipidemia history and is on a statin low dose. She has a history of migraine headaches of an intermittent nature. She also has a history of significant anxiety disorder for which she takes alprazolam. She was in her usual state of health on June 05 when she woke up and got to work at 0800 hours. Sometime around 1130 hours she had the onset of feeling generally shaky and anxious. She took 0.5 mg alprazolam which did not help. This is unusual because usually this will calm down an anxiety attack. After eating lunch, throughout the afternoon, she started getting blurry vision and a bioccipital headache with nausea. There was no nausea, photophobia, or sonophobia. She felt weak and shaky in all of her limbs and was quite tired. There was a little tingling in her limbs in general. There is no tingling around her face. The bioccipital headache was a steady ache. It was worse with lifting her head up and better with laying down. Since she wasn't getting better, she arrived at the emergency room at 11/29/02 hours. Blood pressure was 130/93, pulse 74, temp 36.8, respiratory rate 18, and O2 saturation 99%. There were no focal neurologic signs in the emergency room. She had no confusion or encephalopathy. There were no meningeal signs. Chest x-ray showed a right hilar nodule. Repeat chest x-ray revealed no significant nodule and this was likely calcification. CT scan of the head showed an 8 mm left periventricular lesion of uncertain age consistent with an infarct. Carotid ultrasound revealed 50% stenosis in the right internal carotid artery. MRI of the brain showed no acute stroke. There was mild to moderate scattered old small vessel ischemic disease of a nonspecific nature. The CT scan lesion corresponded to an old small vessel change on the MRI. CBC, urinalysis, chem profile, liver profile, TSH, and Lyme antibody titers were unremarkable. Lipid profile is pending. This morning, she still has a little bit of headache occipitally and a little bit of nausea. In bed she is asymptomatic with no dizziness. With sitting up she is lightheaded and dizzy. She feels anxious because she hasn't received her usual anxiety medications over the last 12 hours. She has been on a baby aspirin tablet daily for about 2 years Past Medical/Surgical History Medical Problems: (1) Abnormal chest x-ray Status: Acute (2) Acute headache Status: Acute (3) CVA (cerebral vascular accident) Status: Acute Dyslipidemia Diverticulitis Anxiety disorder History of intermittent migraine headaches Post appendectomy and hysterectomy Family History Mother, age 79, has hypertension and dyslipidemia Father in his early 70s of metastatic cancer. This was of uncertain etiology but he was a smoker Social History Currently, the patient smokes about 5 cigarettes per day and has been doing this for over 40 years. She rarely has a drink of alcohol. 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 She has a "hobby" job working in a [employer]. The patient has 3 children ranging in age from 32-28. She has 7 grandchildren the oldest of which are 12 She is originally from [facility] Smoking Status: Current every day smoker Smokeless Tobacco Use: No Alcohol Use: socially Drug Use: none Marital Status: Housing Status: lives with family Occupation Status: employed Allergies Coded Allergies: Penicillins (Verified Allergy, Intermediate, Hives, 06/05/17) Venlafaxine (Verified Allergy, Intermediate, Hives, 06/05/17) Current Inpatient Medications Current Inpatient Medications Medications (Trade) Dose Ordered Sig/Shania Route Start Time Stop Time Status Last Admin Dose Admin Miscellaneous Information (Pharmacist Discharge Med Rec Consult) 1 ea UD PRN N/A 06/05/17 20:15 07/05/17 20:14 Acetaminophen (Tylenol Tab) 650 mg Q4H PRN PO 06/05/17 20:15 07/05/17 20:14 06/05/17 22:01 650 MG Al Hydrox/Mg Hydrox/Simethicone (Maalox Max Susp) 15 ml Q4H PRN PO 06/05/17 20:15 07/05/17 20:14 Magnesium Hydroxide (Milk Of Magnesia Susp) 30 ml Q12H PRN PO 06/05/17 20:15 07/05/17 20:14 Zolpidem Tartrate (Ambien Tab) 5 mg HSZ PRN PO 06/05/17 20:15 07/05/17 20:14 Ondansetron HCl (Zofran Inj) 4 mg Q6H PRN IV 06/05/17 20:15 07/05/17 20:14 06/05/17 20:45 4 MG Nitroglycerin (Nitrostat Tab) 0.4 mg UD PRN SL 06/05/17 20:15 07/05/17 20:14 Polyethylene (Miralax Powder Packet) 17 gm DAILY PRN PO 06/05/17 20:15 07/05/17 20:14 Aspirin (Ecotrin Tab) 81 mg DAILY PO 06/06/17 09:00 07/06/17 08:59 06/06/17 07:15 81 MG Atorvastatin Calcium (Lipitor Tab) 80 mg HS PO 06/05/17 21:00 07/05/17 20:59 06/05/17 23:33 80 MG Enoxaparin Sodium (Lovenox Inj) 40 mg QAM SQ 06/06/17 09:00 07/06/17 08:59 06/06/17 07:16 40 MG Morphine Sulfate (MoRPHine SULFATE INJ) 2 mg Q4H PRN IV 06/05/17 22:45 06/19/17 22:44 06/06/17 07:15 2 MG Review of Systems Constitutional: + weakness, + fatigue, No fever Eyes: No worsening of vision, No diplopia ENT: No hearing loss, No tinnitus, No trouble swallowing Respiratory: No cough, No shortness of breath Cardiovascular: No chest pain, No palpitations Abdomen: + nausea, No pain Musculoskeletal: No joint pain, No muscle pain Genitourinary - Female: No dysuria, No urinary incontinence Neurologic: + weakness, + balance problems, No memory loss, No numbness/ tingling, No vertigo Psychiatric: + anxiety, No depression symptoms Endocrine: + fatigue Hematologic / Lymphatic: No abnormal bleeding/bruising Integumentary: No rash Allergic / Immunologic: + hives Physical Exam Vital Signs (Past 24 Hrs): Date Time Temp Pulse Resp B/P (MAP) Pulse Ox O2 Delivery O2 Flow Rate FiO2 06/06/17 08:00 96 Room Air 06/06/17 07:10 36.7 66 20 110/68 (82) 95 Room Air 06/06/17 04:00 95 Room Air 06/06/17 03:52 36.7 59 20 105/65 (78) 95 Room Air 06/05/17 23:59 96 Room Air 06/05/17 22:05 36.7 60 18 124/78 96 Room Air 06/05/17 20:43 66 19 139/77 98 Room Air 06/05/17 19:00 62 16 117/80 97 Room Air 06/05/17 17:12 60 06/05/17 17:09 99 Room Air 06/05/17 17:09 99 Room Air 06/05/17 17:03 36.8 74 18 130/93 99 Room Air Patient is right-handed. The patient is awake and alert. Speech is normal without aphasia or dysarthria. Mentation and thought processes are intact with orientation and normal fund of knowledge. Mood and affect are normal and appropriate. Appearance and grooming are normal. The discs are sharp with positive venous pulsations. There are no exudates, hemorrhages, or blood vessel changes seen. Pupils are 4mm bilaterally and reactive to light. Extraocular eye muscles are intact without nystagmus. Visual acuity and visual zavala seem normal grossly to confrontation. There are no deficits to sensation of the face bilaterally. Corneal reflexes are positive bilaterally. Facial strength and symmetry is normal bilaterally. Hearing seems intact grossly to voice and finger rub. Palate moves well without asymmetry. There is normal sternocleidomastoid and trapezius strength bilaterally. Tongue is midline with good strength bilaterally. Neck is with full range of motion without discomfort. There are no cervical bruits. There are no cranial or ocular bruits. Heart is without murmur. Cervical, thoracic, and lumbar spine are nontender to palpation. When she first stands up, she is quite lightheaded. After a minute or so this settles and she can walk although she is tentative. Turns are fairly stable. With outstretched arms there is no drift. There are no resting, postural, or action tremors. There is no ataxia with [id number] testing. There is good facility in the hands. There are no abnormal involuntary movements noted. Motor strength is 5/5 diffusely in the arms bilaterally including deltoids, biceps, brachioradialis, wrist flexors and extensors, parachute inspector, and intrinsic hand muscles. Motor strength is 5/5 diffusely in the legs bilaterally including hip flexors, quadriceps, hamstring, gastrocnemius, tibialis anterior, tibialis posterior, and peroneii muscles bilaterally. Toe extensors are normal and there is good bulk in the extensor digitorum brevis muscle bilaterally. The limbs have good tone without rigidity or spasticity, and there is no atrophy noted. Muscle bulk is normal, there is no tenderness, no myotonia noted to percussion, and no fasciculations seen. Sensory examination is intact to pin and touch throughout all four limbs. Reflexes are 1/4 in the biceps, triceps, brachioradialis, quadriceps, and Achilles tendons bilaterally. Toes are downgoing with plantar stimulation bilaterally. Peripheral pulses are present and of normal quality distally in all four limbs. There is no peripheral edema noted. Laboratory Results Past 24 Hours: 06/06/17 07:12 Red Blood Count 3.79, Mean Corpuscular Volume 96.3, Mean Corpuscular Hemoglobin 31.1, Mean Corpuscular Hemoglobin Concent 32.3, Mean Platelet Volume 9.7, Neutrophils (%) (Auto) 53.8, Lymphocytes (%) (Auto) 36.7, Monocytes (%) (Auto) 6.8, Eosinophils (%) (Auto) 2.0, Basophils (%) (Auto) 0.5, Neutrophils # (Auto) 3.51, Lymphocytes # (Auto) 2.39, Monocytes # (Auto) 0.44, Eosinophils # (Auto) 0.13, Basophils # (Auto) 0.03 06/06/17 07:12 Test 06/05/17 17:00 06/05/17 18:00 06/06/17 02:12 06/06/17 07:12 Prothrombin Time 10.5 SECONDS (9.0-12.0) Prothromb Time International Ratio 1.0 (0.9-1.1) Activated Partial Thromboplast Time 24.9 SECONDS (21.0-31.0) Partial Thromboplastin Ratio 1.0 Estimated Average Glucose 111 mg/dl Hemoglobin A1c 5.5 % (4.5-5.6) Magnesium Level 2.4 mg/dl (1.8-2.4) Total Bilirubin 0.3 mg/dl (0.2-1) Direct Bilirubin < 0.1 mg/dl (0-0.2) Aspartate Amino Transf (AST/SGOT) < 3 U/L (15-37) Alanine Aminotransferase (ALT/SGPT) 18 U/L (12-78) Alkaline Phosphatase 64 U/L (45-117) Total Protein 7.2 gm/dl (6.4-8.2) Albumin 4.2 gm/dl (3.4-5.0) Thyroid Stimulating Hormone (TSH) 2.090 uIu/ml (0.300-4.500) Lyme Disease IgG Antibody NEG (NEG) Lyme Disease IgM Antibody NEG (NEG) Urine Color YELLOW Urine Appearance CLEAR (CLEAR) Urine pH 8.0 (4.5-7.5) Urine Specific [place] 1.008 (1.000-1.030) Urine Protein NEG (NEG) Urine Glucose (UA) NEG (NEG) Urine Ketones NEG (NEG) Urine Occult Blood NEG (NEG) Urine Nitrite NEG (NEG) Urine Bilirubin NEG (NEG) Urine Urobilinogen NEG (NEG) Urine Leukocyte Esterase NEG (NEG) Troponin I < 0.015 ng/ml (0-0.045) White Blood Count 6.51 K/uL (4.8-10.8) Red Blood Count 3.79 M/uL (4.2-5.4) Hemoglobin 11.8 g/dL (12.0-16.0) Hematocrit 36.5 % (37-47) Mean Corpuscular Volume 96.3 fL (80-100) Mean Corpuscular Hemoglobin 31.1 pg (25-34) Mean Corpuscular Hemoglobin Concent 32.3 g/dl (32-36) Platelet Count 227 K/uL (130-400) Mean Platelet Volume 9.7 fL (7.4-10.4) Neutrophils (%) (Auto) 53.8 % Lymphocytes (%) (Auto) 36.7 % Monocytes (%) (Auto) 6.8 % Eosinophils (%) (Auto) 2.0 % Basophils (%) (Auto) 0.5 % Neutrophils # (Auto) 3.51 K/uL (1.4-6.5) Lymphocytes # (Auto) 2.39 K/uL (1.2-3.4) Monocytes # (Auto) 0.44 K/uL (0.11-0.59) Eosinophils # (Auto) 0.13 K/uL (0-0.5) Basophils # (Auto) 0.03 K/uL (0-0.2) RDW Standard Deviation 45.8 fL (36.4-46.3) RDW Coefficient of Variation 13.1 % (11.5-14.5) Immature Granulocyte % (Auto) 0.2 % Immature Granulocyte # (Auto) 0.01 K/uL (0.00-0.02) Anion Gap 4.0 mmol/L (3-11) Est Creatinine Clear Calc Drug Dose 76.4 ml/min Estimated GFR () 100.9 Estimated GFR (Non- 87.1 BUN/Creatinine Ratio 9.2 (10-20) Calcium Level 8.6 mg/dl (8.5-10.1) Imaging BRAIN COMBO CLINICAL HISTORY: Stroke COMPARISON STUDY: CT same date TECHNIQUE: Utilizing a 1.5 Haley magnet and dedicated coil, multiplanar, multiecho imaging of the brain was performed pre and postcontrast administration. IV administration of 8.5 mL of Gadavist contrast was uneventful. FINDINGS: No evidence for an acute ischemic event on diffusion-weighted imaging. CT findings appear to relate to old small periventricular infarct. Multiple foci of increased signal on the periventricular deep white matter regions are present. This may be consistent with chronic small vessel change. No significant postcontrast enhancement. Ventricular system is midline. IMPRESSION: 1. No evidence for an acute ischemic process. 2. Considerable chronic small vessel change throughout both cerebral hemispheres. 3. No evidence for abnormal postcontrast enhancement. The above report was generated using voice recognition software. It may contain grammatical, syntax or spelling errors. Electronically signed by: Eleazar Bay M.D. 06/05/2017 9:42 PM Dictated Date/Time: 06/05/2017 9:39 PM Impression 1. Acute event June 05. This is consistent with a migrainous phenomena, with headache, nausea, and general symptoms including weakness, tingling, and fatigue. She is somewhat better today but still has some nausea and headache left over. She has some lightheadedness with standing also. There are no focal neurologic findings on exam today, no meningeal signs, no encephalopathy. There is no evidence for stroke by MRI or exam. The history is not consistent with a TIA. The patient has a history of intermittent migraine headaches. 2. Anxiety disorder Fairly stable when she takes alprazolam. 3. Right carotid stenosis, 50% 4. Chronic cerebral ischemia, mild to moderate Plan 1. I see no need for additional neurologic testing at this time 2. Fasting lipid profile is pending. Depending on her results, she may be a candidate for high-dose statins. 3. Since this event occurred on aspirin (although it wasn't a true TIA or stroke), and she has carotid stenosis and mild to moderate small vessel ischemic disease, I would consider switching her aspirin to clopidogrel 75 mg daily. 4. Follow carotid stenosis with repeat ultrasound in 6 months 5. Discontinue cigarette smoking 6. This patient should receive her regular dose of alprazolam. 0.5 mg today to calm her anxiety down (and then use 0.5mg once daily as needed) and 1 mg each evening. I spoke with Dr. Nj regarding this case including differential diagnosis and treatment options.
[2017-06-06] MEDS ORDERED: ALPRAZOLAM 0.5 MG TAB PO ONE (10:55)
[2017-06-06] MEDS ORDERED: ALPRAZOLAM 0.5 MG TAB PO PRN ×2 (11:00)
[2017-06-06] MEDS ORDERED: OXYCODONE/ACETAMINOPHEN 5-325 TAB PO ONE (12:36)
[2017-06-06] MEDS ORDERED: OXYCODONE/ACETAMINOPHEN 5-325 TAB PO PRN (12:45)
[2017-06-06] MEDS ORDERED: NICOTINE 7 MG/24 HR TDSY TD ONE (13:11)
[2017-06-06] MEDS: ONDANSETRON INJ 2 MG/ML 2 ML VIAL IV PRN ×2 (13:31→19:15)
[2017-06-06] MEDS ORDERED: ACETAMINOPHEN 325 MG TAB PO PRN (18:00)
[2017-06-06] MEDS: ATORVASTATIN 40 MG TAB PO SCH (20:33)
[2017-06-07 07:17] VITALS: BP_SYST 125; BP_SYST 129; BP_SYST 132; BP_DIAS 81; BP_DIAS 84; PULSE 59; PULSE 67; PULSE 75; TEMP 36.7; O2SAT 98
--- NOTE | 2017-06-07 07:40 | Neurology Progress Notes ---
Neurology Progress Note Date of Service Jun 07, 2017. Subjective Patient feels much better this morning. She has a slight/residual nonspecific discomfort in her forehead but no significant headache. She is not dizzy or vertiginous/lightheaded this morning. She was up walking without difficulty. She has no vision issues speech or mentation problems. She has no weakness or numbness in the arms or legs. Her fatigue is markedly improved today. She has no sense of general weakness. She has no anxiety and has slept well last night. Nursing reports no new events overnight. Echocardiogram was largely unremarkable. Fasting lipid profile is pending. Vital signs are stable and there was no evidence for orthostasis with blood pressure and pulse lying, sitting, and standing Objective Date Time Temp Pulse Resp B/P (MAP) Pulse Ox O2 Delivery O2 Flow Rate FiO2 06/07/17 07:17 36.7 59 18 132/84 (100) 98 Room Air 67 125/81 (96) 75 129/84 (99) 06/07/17 00:00 Room Air 06/06/17 21:22 96 Room Air 06/06/17 19:32 36.9 61 18 96 06/06/17 16:00 96 Room Air 06/06/17 15:28 36.9 61 18 105/61 (76) 97 Room Air 06/06/17 12:00 96 Room Air 06/06/17 11:15 60 118/78 (91) 06/06/17 11:15 36.9 60 20 113/73 (86) 96 Room Air 06/06/17 11:15 61 123/81 (95) 06/06/17 08:00 96 Room Air Last 24 Hours Test 06/06/17 10:18 06/07/17 04:44 Troponin I < 0.015 ng/ml Exam: She is awake and alert. Speech is without aphasia or dysarthria. Mood and affect are normal and appropriate. Thought processes are intact. There is no facial droop. Extraocular eye muscles are intact without nystagmus. With outstretched arms there is no drift. There is no resting, postural, or action tremor. Strength is symmetrical the limbs. Current Inpatient Medications Medications (Trade) Dose Ordered Sig/Shania Route Start Time Stop Time Status Last Admin Dose Admin Al Hydrox/Mg Hydrox/Simethicone (Maalox Max Susp) 15 ml Q4H PRN PO 06/05/17 20:15 07/05/17 20:14 Magnesium Hydroxide (Milk Of Magnesia Susp) 30 ml Q12H PRN PO 06/05/17 20:15 07/05/17 20:14 06/06/17 20:35 30 ML Ondansetron HCl (Zofran Inj) 4 mg Q6H PRN IV 06/05/17 20:15 07/05/17 20:14 06/06/17 19:15 4 MG Nitroglycerin (Nitrostat Tab) 0.4 mg UD PRN SL 06/05/17 20:15 07/05/17 20:14 Polyethylene (Miralax Powder Packet) 17 gm DAILY PRN PO 06/05/17 20:15 07/05/17 20:14 Atorvastatin Calcium (Lipitor Tab) 80 mg HS PO 06/05/17 21:00 07/05/17 20:59 06/06/17 20:33 80 MG Enoxaparin Sodium (Lovenox Inj) 40 mg QAM SQ 06/06/17 09:00 07/06/17 08:59 06/06/17 07:16 40 MG Alprazolam (Xanax Tab) 1 mg HS PRN PO 06/06/17 11:00 07/06/17 10:59 06/06/17 20:33 1 MG Alprazolam (Xanax Tab) 0.5 mg DAILY PRN PO 06/07/17 08:00 07/06/17 10:59 Clopidogrel Bisulfate (plAVix TAB) 75 mg QAM PO 06/07/17 08:00 07/07/17 08:59 Acetaminophen (Tylenol Tab) 650 mg Q6HWA PRN PO 06/06/17 18:00 07/05/17 20:14 Oxycodone/ Acetaminophen (Percocet 5-325mg Tab) 1 tab Q6HWA PRN PO 06/06/17 12:45 06/20/17 12:44 06/06/17 19:16 1 TAB Nicotine (Nicoderm Cq 7 Mg Patch) 1 patch QAM TD 06/07/17 08:00 07/07/17 08:59 Miscellaneous (Remove Nicoderm Patch) 1 ea HS N/A 06/06/17 21:00 07/06/17 20:59 06/06/17 20:33 1 EA Impression 1. Acute event June 05. This was consistent with a migrainous phenomena, with headache, nausea, and general symptoms including weakness, tingling, and fatigue. She is much better today symptomatically. There are no focal neurologic findings on exam today, no meningeal signs, and no encephalopathy. There is no evidence for stroke by MRI or exam. The history is not consistent with a TIA. The patient has a history of intermittent migraine headaches. 2. Anxiety disorder Fairly stable when she takes alprazolam. This is much better today compared to yesterday. 3. Right carotid stenosis, 50% 4. Chronic cerebral ischemia, mild to moderate Plan 1. There is no need for additional neurologic testing at this time 2. Fasting lipid profile is pending. 3. Continue clopidogrel 75 mg daily. 4. Follow carotid stenosis with repeat ultrasound in 6 months 5. Discontinue cigarette smoking 6. Continue her regular dose(s) of alprazolam. 0.5 mg during the day as needed , and 1 mg each evening. I have no further neurologic recommendations to make at this time. Please contact me if I can be of further assistance on this case. I'm happy to follow her as an outpatient, if desired.
[2017-06-07] MEDS: ENOXAPARIN 40 MG/0.4 ML SYR SQ SCH (07:47)
[2017-06-07 08:00] VITALS: O2SAT 98
[2017-06-07] MEDS ORDERED: CLOPIDOGREL BISULFATE 75 MG TAB PO SCH (08:00)
[2017-06-07] MEDS ORDERED: ALPRAZOLAM 0.5 MG TAB PO PRN (08:00)
[2017-06-07] MEDS ORDERED: NICOTINE 7 MG/24 HR TDSY TD SCH (08:00)
[2017-06-07 08:09] LABS: BASO % 0.6 %; BASO ABS # 0.04 K/uL (0-0.2); COMPLETE YES; EOS % 3.3 %; HEMATOCRIT 39.5 % (37-47); IG% 0.2 %; LYMPH % 34.8 %; MEAN CELL VOLUME 98.3 fL (80-100); MEAN CORPUSCULAR HEMOGLOBIN 31.3 pg (25-34); MEAN CORPUSCULAR HGB CONC 31.9 g/dl (32-36); MONO % 7.3 %; NEUT % 53.8 %; PLATELET COUNT 232 K/uL (130-400); RED BLOOD COUNT 4.02 M/uL (4.2-5.4); WHITE BLOOD COUNT 6.33 K/uL (4.8-10.8)
[2017-06-07 08:39] LABS: BUN/CREATININE RATIO 11.4 (10-20); CREATININE 0.9 mg/dl (0.60-1.20); POTASSIUM 4.1 mmol/L (3.5-5.1)
[2017-06-07 08:42] LABS: CHOLESTEROL/HDL RATIO 3.9
[2017-06-07] MEDS ORDERED: PLV75 PO (11:13)
[2017-06-07] MEDS ORDERED: NICO7DIS7 TD (11:13)
[2017-06-07] MEDS ORDERED: LPT40 PO ×2 (11:13→11:35)
[2017-06-07] MEDS ORDERED: OXYC-57 PO (11:13)
--- NOTE | 2017-06-07 11:25 | Discharge Instructions ---
Discharge Instructions Date of Service Jun 07, 2017. Admission Reason for Admission: Stroke, Stroke-Like Symptoms Discharge Discharge Diagnosis / Problem: Tension headache. Chronic brain small vessel disease Discharge Goals Goal(s): Decrease discomfort, Improve disease control, Diagnostic testing, Therapeutic intervention Activity Recommendations Activity Limitations: resume your previous activity . Instructions / Follow-Up Instructions / Follow-Up You were admitted with a severe tension headache. This improved with tension releasing techniques and some pain medication. At discharge, continue tension release techniques, heat/ice pack. A short supply of Percocet has been prescribed, which you can use if you have severe ongoing symptoms. If Tylenol reduces your symptoms, you may use this instead. Percocet also contains Tylenol, so please be careful not to use more than 4mg of Tylenol total in 24 hours. Imaging of your brain did show that you have some chronic small vessel disease in your brain. Since these occurred while on Aspirin, this medication has been stopped and instead, you have been put on a medication called clopidogrel (Plavix) 75mg daily. Please continue this medication indefinitely unless told otherwise by a physician. Your Atorvastatin dose has also been increased to 80mg daily instead of 10mg for increased plaque stabilization. Please note, if you are having any side effects with this high dose, your primary care physician may decide to reduce the dose to 40mg instead. Additionally, it is recommended that you have a repeat carotid ultra sound Doppler in ~6months for follow up. Have your family doctor refer you to have that done. If you have any further questions or concerns, please do not hesitate to seek medical crisis counselor. Thank you for allowing us to participate in your care. Current Hospital Diet Patient's current hospital diet: Regular Diet Discharge Diet Recommended Diet: Regular Diet, AHA Diet (Heart Healthy) Pending Studies Studies pending at discharge: no Laboratory Results Hemoglobin A1c Test 06/05/17 17:00 Range/Units Estimated Average Glucose 111 mg/dl Hemoglobin A1c 5.5 4.5-5.6 % Lipid Panel Test 06/07/17 07:49 Range/Units Triglycerides Level 153 H 0-150 mg/dl Cholesterol Level 195 0-200 mg/dl HDL Cholesterol 50 mg/dl Cholesterol/HDL Ratio 3.9 LDL Cholesterol, Calculated 114 mg/dl Medical Emergencies . Who to Call and When: Medical Emergencies: If at any time you feel your situation is an emergency, please call 911 immediately. . Non-Emergent Contact Non-Emergency issues call your: Primary Care Provider . . "Provider Documentation" section prepared by Kassie Coronado. . VTE Core Measure Inpt VTE Proph given/why not?: Enoxaparin (Lovenox)SQ
--- NOTE | 2017-06-07 11:39 | Discharge Summary ---
Discharge Summary Date of Service Jun 07, 2017. (Alka. Coronado MD) Discharge Summary Admission Date: Jun 05, 2017 at 20:07 Discharge Date: Jun 07, 2017 Discharge Disposition: Home Principal Diagnosis: Tension headache, chronic brain small vessel disease (Alka. Coronado MD) Medication Reconciliation New Medications: Atorvastatin (Atorvastatin Calcium) 40 Mg Tab 80 MG PO HS, #60 TAB 2 Refills Clopidogrel Bisulfate (Clopidogrel) 75 Mg Tab 75 MG PO QAM, #30 TAB 2 Refills Nicotine (Nicoderm Cq 7 Mg Patch) 7 Mg/24 Hr Dis 1 PATCH TD QAM, #30 PATCH Oxycodone/Acetaminophen 5MG/325MG (Percocet 5MG/325MG) Tab 1 TAB PO Q6HWA PRN for Pain, #10 TAB PAIN Continued Medications: Alprazolam (Xanax) 1 Mg Tab 1 MG PO HS, TAB Alprazolam (Xanax) 1 Mg Tab 0.5 MG PO UD, TAB TAKE HALF A TABLET DURING THE DAY Discontinued Medications: Aspirin (Aspirin Ec) 81 Mg Tab 81 MG PO DAILY Atorvastatin (Lipitor) 10 Mg Tab 10 MG PO DAILY, TAB Discharge Exam Patient well. Headache minimal, intensity significantly improved with OMT, Percocet and a good night sleep. Patient has no other complaints and is keen for home. ROS unremarkable. Physical Exam: General Appearance: WD/WN, no apparent distress ENT: hearing grossly normal Neck: supple, no JVD, no carotid bruits, trachea midline Respiratory/Chest: lungs clear, normal breath sounds, no respiratory distress, no accessory muscle use Cardiovascular: regular rate, rhythm, no murmur, normal peripheral pulses Abdomen / GI: normal bowel sounds, non tender, soft Extremities: normal inspection, no calf tenderness, normal capillary refill , no pedal edema Neurologic/Psychiatric: alert, normal mood/affect, oriented x 3 Skin: normal color, warm/dry, no rash Lymphatic: no adenopathy (Alka. Coronado MD) Hospital Course 56 yo F smoker with HLD who presents with headache and full body weakness, found to have a subacute stroke on left periventricular region via imaging. Stroke - CT showed 8 mm hypodensity in left periventricular region without evidence for acute ICH, suggestive of a subacute infarct. Lack of acuity confirmed with brain MRI, which mainly showed diffuse chronic small vessel change. Carotid Doppler showed 50% narrowing of right internal carotid artery only, and moderate plaque formation bilaterally. Echo showed normal LV size, wall thickness, and function with EF 55-60% and normal wall motion. Mild aortic regurgitation, trace tricuspid regurgitation. Normal right ventricular systolic pressure and no interatrial shunt. Neurology consulted, recs appreciated. HbA1c 5.5, Fasting lipids drawn. - Discontinued Aspirin 81mg, started clopidogrel 75mg daily, as per neurology - Advised for smoking cessation - Repeat carotid Doppler in 6 months Headache - Likely tension headache. Tender occiput muscles, with OMT soft tissue technique applied at bedside - Discontinued IV morphine - Continue acetaminophen 650mg q6h or Percocet 5/325mg q6h PRN pain - Alternate heat pack and ice pack, as per patient's preference - Discharged with 10 tablets of Percocet Hyperlipidemia - Atorvastatin increased to 80mg (from 10mg home dose). Advised patient that if not tolerating well, can be halved to 40mg daily (ideal minimum dose for plaque stabilization) Orthostatic symptoms - resolved - Orthostatic measurements negative - Encourage PO intake of fluids Smoking cessation Patient keen to quit immediately - Nicotine patch 7mg Pulmonary nodule on CXR - Initial CXR showed 1.7 x 0.6 cm elongated nodular density possibly artifact, vessel or a pulmonary nodule. Repeat PA lateral and shallow oblique radiographs reported negative study: benign calcification right costochondral cartilage VTE PPx - Enoxaparin Code status: Full resus This includes examination of the patient, discharge planning, medication reconciliation, and communication with other providers. (Alka. Coronado MD) Resident Physician Supervision Note: I interviewed and examined the patient. Discussed with Dr. Coronado and agree with findings and plan as documented in the note. Any exceptions or clarifications are listed here: None Documented By: Rome jN feeling better headache far improved. ready to go home. present. extensive discussion on headache as well as on finding of asymptomatic but present cerebrovascular and carotid disease - and smoke cessation, more aggressive statin therapy, change to plavix from aspirin. both asked good questions, explained situation and answered all questions to the best of my ability vitals noted nad breathing unlabored no pallor or icterus no focal neuro deficits tension headache - improved w OMT, meds, time cerebrovascular disease - aggressive risk reduction and med management carotid stenosis - aggressive risk reduction and med management, repeat US 6 months Total Time Spent: Greater than 30 minutes (Rome Nj D.O.) Discharge Instructions Please refer to the electronic Patient Visit Report (Discharge Instructions) for additional information. (Alka. Coronado MD)
[2017-06-07 12:42] VITALS: BP 129/84; PULSE 75; TEMP 36.7; O2SAT 98
== END 2017-06-07 13:43 | disposition home or self-care (01) | DRG 103 ==
LOC: C.EDA 16:53 → C.2T 20:07 → ENRESERV 20:29 → C.MS4W 06-06 20:15
PROVIDERS: ADMIT Hospitalist; ATTEND Family Medicine
DX: G44.209 Tension-type headache, unspecified, not intractable (principal); I67.82 Cerebral ischemia; F41.9 Anxiety disorder, unspecified; I65.21 Occlusion and stenosis of right carotid artery; E78.5 Hyperlipidemia, unspecified; I95.9 Hypotension, unspecified; F17.210 Nicotine dependence, cigarettes, uncomplicated; R91.1 Solitary pulmonary nodule; G43.909 Migraine, unspecified, not intractable, without status migrainosus; Z86.73 Personal history of transient ischemic attack (TIA), and cerebral infarction without residual deficits; Z79.899 Other long term (current) drug therapy; Z79.02 Long term (current) use of antithrombotics/antiplatelets; Z79.891 Long term (current) use of opiate analgesic

== ENCOUNTER 2017-08-13 14:23 | Observation (INO) | payer OTHER ==
[~2017-08-13] VITALS: Ht 170.2 cm; Wt 67.3 kg
[~2017-08-13 14:23] MED LIST: ALPR1TAB3 PO; LPT40 PO; NICO7DIS7 TD; OXYC-57 PO; PLV75 PO
[2017-08-13] MEDS ORDERED: NITROGLYCERIN OINT 2% 1GM PACKET EXT STA (15:00)
[2017-08-13] MEDS ORDERED: ONDANSETRON INJ 2 MG/ML 2 ML VIAL IV STA (15:00)
[2017-08-13] MEDS ORDERED: SODIUM CHLORIDE 0.9% 1000ML 500 ML IV STA (15:00)
--- NOTE | 2017-08-13 15:08 | EMERGENCY ROOM VISIT NOTE ---
History Report prepared by Arcadio: Sushant Suazo Under the Supervision of: Dr. Chuckie Guidry M.D. First contact with patient: 14:56 Chief Complaint: CHEST PAIN Stated Complaint: CHEST PAIN Nursing Triage Summary: Pt arrived via ambulance ALS. Pt was sitting at her desk today and began to experience substernal chest pain that radiated to her left shoulder. Pt stated it felt like someone was sitting on her chest. Pain was a 7 out of 10. Pt became diaphoretic, SOB and had nausea at the same time. When EMS arrived Pt was given 324mg Aspirin, 300ml NSS, 4mg Zofran, and 1 sublin Nitro. That brought the pts pain down to a 2 out of 10 and she no longer had nausea. Upon assessment. Pts chest pain is now back to a 5 out of 10, substernal pressure. Pt feels short of breath still. Pt lungs are clear bilaterally. History of Present Illness The patient is a 56 year old female who presents to the Emergency Room via EMS with complaints of waxing and waning chest pain that started around 2 hours ago. She says that she was sitting at her desk at work when she started feeling short of breath, nauseated, and sweaty. She states that her chest then started feeling tight and heavy with pressure. The patient adds that the pain radiated to her left shoulder. She says that the pain got up to a 7 out of 10 in severity. She was given Aspirin, Nitro, and Zofran in the ambulance, and she says the chest pain went down to a 2 out of 10 after the Nitro, and the nausea got better after the Zofran. She states that the chest pain is now going up to a 5 out of 10 in severity. The patient notes that she has a history of a right bundle branch block, and one of her arteries is 50% blocked, and she is on Plavix for that. She notes no history of heart attacks. The patient has an appointment with her pack master on August 25. She says that she does have a family history of heart trouble. She says that she was here a month ago for stroke-like symptoms. The patient's daughter adds that the patient has a history of anxiety. Source of History: patient Onset: 2 hours ago Position: chest Symptom Intensity: up to a 7/10 Quality: other (tight, heavy, pressure) Timing: waxes/wanes Modifying Factors (Relieving): other (Nitro) Associated Symptoms: + diaphoresis, + SOB, + nausea Note: Associated symptoms: Left shoulder pain. Review of Systems See HPI for pertinent positives & negatives. A total of 10 systems reviewed and were otherwise negative. Past Medical & Surgical Medical Problems: (1) Anxiety (2) Diverticulitis (3) Hypertension (4) Insomnia (5) Stroke (6) Stroke-like symptoms Surgical Problems: (1) History of appendectomy (2) History of total hysterectomy Family History FH: heart disease Social History Smoking Status: Former Smoker Alcohol Use: none Drug Use: none Marital Status: Housing Status: lives with family Occupation Status: employed Current/Historical Medications Scheduled Alprazolam (Xanax), 1 MG PO HS Atorvastatin (Lipitor), 80 MG PO HS Clopidogrel Bisulfate (Plavix), 75 MG PO DAILY Nicotine (Nicoderm Cq 7 Mg Patch), 7 MG TD DAILY Scheduled PRN Alprazolam (Xanax), 0.5 MG PO BID PRN for Anxiety Ondansetron Hcl (Zofran), 4 MG SL PRN UD PRN for Nausea Allergies Coded Allergies: Adhesives (Verified Allergy, Severe, RASH, 08/13/17) Penicillins (Verified Allergy, Intermediate, Hives, 06/05/17) Venlafaxine (Verified Allergy, Intermediate, Hives, 06/05/17) Physical Exam Vital Signs Date Time Temp Pulse Resp B/P (MAP) Pulse Ox O2 Delivery O2 Flow Rate FiO2 08/13/17 17:00 76 19 109/70 98 Room Air 08/13/17 16:00 71 23 118/77 99 Room Air 08/13/17 15:30 67 21 125/75 98 Room Air 08/13/17 15:08 67 16 128/76 100 Room Air 08/13/17 14:51 68 08/13/17 14:41 36.4 68 20 122/78 100 Room Air 08/13/17 14:41 100 Room Air 08/13/17 14:41 100 Room Air Physical Exam GENERAL: Patient is in no acute distress. HEENT: No acute trauma, normocephalic atraumatic, mucous membranes moist, no nasal congestion, no scleral icterus. NECK: No stridor, no adenopathy, no meningismus, trachea is midline. LUNGS: Clear to auscultation bilaterally, no wheeze, no rhonchi, breath sounds equal. HEART: Without murmurs gallops or rubs, regular rate and rhythm. ABDOMEN: Soft, nontender, bowel sounds positive, no hernias, no peritonitis. EXTREMITIES: No cyanosis or edema, full range of motion of all the joints without pain or difficulty, no signs for acute trauma. NEUROLOGIC: Oriented x 3, no acute motor or sensory deficits, no focal weakness. SKIN: No rash, no jaundice, no diaphoresis. Medical Decision & Procedures ER Provider Diagnostic Interpretation: X-ray results as stated below per interpretation by me and the radiologist: CHEST ONE VIEW PORTABLE CLINICAL HISTORY: Difficult chest pain COMPARISON STUDY: 06/05/2017 FINDINGS: The cardiac and mediastinal contours are normal. There is no evidence of focal pulmonary consolidation. There is no evidence of failure. No pleural effusions are visualized.[ IMPRESSION: No active disease in the chest. Electronically signed by: Carmelo Cantu M.D. 08/13/2017 3:24 PM Dictated Date/Time: 08/13/2017 3:24 PM Laboratory Results Test 08/13/17 13:08 Prothrombin Time 10.1 SECONDS (9.0-12.0) Prothromb Time International Ratio 0.9 (0.9-1.1) Activated Partial Thromboplast Time 24.3 SECONDS (21.0-31.0) Partial Thromboplastin Ratio 0.9 Total Bilirubin 0.3 mg/dl (0.2-1) Aspartate Amino Transf (AST/SGOT) 12 U/L (15-37) Alanine Aminotransferase (ALT/SGPT) 19 U/L (12-78) Alkaline Phosphatase 61 U/L (45-117) Total Protein 8.1 gm/dl (6.4-8.2) Albumin 4.4 gm/dl (3.4-5.0) Globulin 3.7 gm/dl (2.5-4.0) Albumin/Globulin Ratio 1.2 (0.9-2) Lipase 131 U/L (73-393) Laboratory results reviewed by me. Medications Administered Medications (Trade) Dose Ordered Sig/Shania Route Start Time Stop Time Status Last Admin Dose Admin Sodium Chloride 500 ml @ 999 mls/hr Q31M STAT IV 08/13/17 15:00 08/13/17 15:30 DC 08/13/17 15:24 999 MLS/HR Nitroglycerin (Nitroglycerin 2% Oint) 1 inch NOW STAT EXT 08/13/17 15:00 08/13/17 15:03 DC 08/13/17 15:23 1 INCH Ondansetron HCl (Zofran Inj) 4 mg NOW STAT IV 08/13/17 15:00 08/13/17 15:03 DC 08/13/17 15:24 4 MG Alprazolam (Xanax Tab) 0.5 mg NOW STAT PO 08/13/17 16:04 08/13/17 16:06 DC 08/13/17 16:11 0.5 MG Acetaminophen (Tylenol Tab) 650 mg Q4H PRN PO 08/13/17 18:00 09/12/17 17:59 08/13/17 21:46 650 MG Ondansetron HCl (Zofran Inj) 4 mg Q6H PRN IV 08/13/17 18:00 09/12/17 17:59 08/14/17 07:46 4 MG ECG Indication: chest pain Rate (beats per minute): 65 Rhythm: normal sinus Findings: RBBB, no acute ischemic change, no ectopy Change: no significant change (compared to 06/05/17) ED Course 1456: The patient was evaluated in room B6. A complete history and physical exam was performed. 1500: Ordered Zofran Inj 4 mg IV, Nitroglycerin 2% Oint 1 inch EXT, NSS 500 ml @ 999 mls/hr IV. 1604: Ordered Xanax Tab 0.5 mg PO. 1631: I reevaluated the patient and she is doing well. The patient verbally expressed understanding and agreement of the treatment plan. The patient will be evaluated for further treatment. 1634: I discussed the patient with Dr. Guerra - [facility] communications superintendent - he will evaluate the patient for further treatment. Medical Decision Differential diagnosis includes but is not limited to angina, [place], aortic dissection, PE, musculoskeletal pain, pneumonia, pneumothorax, anxiety. There is no leukocytosis or concerning anemia. No significant electrolyte abnormality, kidney failure or hepatitis. There is no coagulopathy. EKG shows a normal sinus rhythm with a right bundle branch block, no acute ischemic change. Cardiac enzyme testing 1 is not consistent with acute cardiac injury. Chest x-ray does not show mediastinal widening, pneumonia or pneumothorax. The patient was given nitro paste, IV Zofran, IV saline. She was given a dose of oral Xanax. The patient is comfortable. Her initial cardiac workup is benign. Her story though is concerning for possible angina/cardiac ischemia. Admission/ observation for further cardiac workup is warranted. I spoke to the patient and case management. The on-call hospitalist was consulted. Medication Reconcilliation Current Medication List: was personally reviewed by me Blood Pressure Screening Patient's blood pressure: Normal blood pressure Consults Time Called: 1630 Consulting Physician: Dr. Charlie STOREY communications superintendent Returned Call: 1634 I discussed the patient with Dr. Charlie STOREY communications superintendent - he will evaluate the patient for further treatment. Impression Primary Impression: Precordial chest pain Scribe Attestation The scribe's documentation has been prepared under my direction and personally reviewed by me in its entirety. I confirm that the note above accurately reflects all work, treatment, procedures, and medical decision making performed by me. Departure Information Dispostion Being Evaluated By Hospitalist Referrals No Doctor, Assigned (PCP) Patient Instructions My [facility]
[2017-08-13 15:17] LABS: HEMATOCRIT 41.2 % (37-47); MEAN CELL VOLUME 96.9 fL (80-100); MEAN CORPUSCULAR HEMOGLOBIN 32.2 pg (25-34); MEAN CORPUSCULAR HGB CONC 33.3 g/dl (32-36); MEAN PLATELET VOLUME 9.9 fL (7.4-10.4); PLATELET COUNT 300 K/uL (130-400); RED BLOOD COUNT 4.25 M/uL (4.2-5.4); WHITE BLOOD COUNT 6.98 K/uL (4.8-10.8)
[2017-08-13 15:25] LABS: BLOOD UREA NITROGEN 6 mg/dl (7-18); CREATININE 0.79 mg/dl (0.60-1.20); GLUCOSE 68 mg/dl (70-99)
--- NOTE | 2017-08-13 15:25 | DIAGNOSTIC IMAGING REPORT ---
CHEST ONE VIEW PORTABLE CLINICAL HISTORY: Difficult chest pain COMPARISON STUDY: 06/05/2017 FINDINGS: The cardiac and mediastinal contours are normal. There is no evidence of focal pulmonary consolidation. There is no evidence of failure. No pleural effusions are visualized.[ IMPRESSION: No active disease in the chest. Electronically signed by: Carmelo Cantu M.D. 08/13/2017 3:24 PM Dictated Date/Time: 08/13/2017 3:24 PM
[2017-08-13 15:26] LABS: ALT/SGPT 19 U/L (12-78); AST/SGOT 12 U/L (15-37); BUN/CREATININE RATIO 8.1 (10-20); CALCIUM 9.6 mg/dl (8.5-10.1); CARBON DIOXIDE 28 mmol/L (21-32); CHLORIDE 108 mmol/L (98-107); INR 0.9 (0.9-1.1); PARTIAL THROMBOPLASTIN RATIO 0.9; POTASSIUM 3.8 mmol/L (3.5-5.1); PROTHROMBIN TIME (PATIENT) 10.1 SECONDS (9.0-12.0); SODIUM 142 mmol/L (136-145)
[2017-08-13 15:30] LABS: ALB/GLOB RATIO 1.2 (0.9-2); ALKALINE PHOSPHATASE 61 U/L (45-117)
[2017-08-13] MEDS ORDERED: ALPR-411 PO (15:40)
[2017-08-13] MEDS ORDERED: ATOR-26 PO (15:40)
[2017-08-13] MEDS ORDERED: CLOP1TAB5 PO (15:40)
[2017-08-13] MEDS ORDERED: NICO7DIS7 TD (15:40)
[2017-08-13] MEDS ORDERED: ONDA4TAB46 SL (15:41)
[2017-08-13] MEDS ORDERED: ALPRAZOLAM 0.5 MG TAB PO STA (16:04)
--- NOTE | 2017-08-13 16:52 | History and Physical ---
History & Physical Date & Time of Service: Aug 13, 2017 at 16:48 Chief Complaint: Chest Pain Primary Care Physician: Daniel Bobo D.O. History of Present Illness Source: patient, family (daughter) 56yo female was sitting at her desk at work around 1245 today (21Sep) when she had sudden substernal chest tightness, heaviness, radiating to left shoulder, 7/ 10 pain scale, with SOB, nausea, and diaphoresis. Called EMS immediately. - EMS: ASA 324, relieved pain a little bit. Single spray NTG sublingual, pain to 2/10. Zofran 4 mg as well. - In ED on arrival: NTG 2% ointment one inch, zofran 4 mg IV, xanax 0.5 mg PO. On my interview, pt states she still feels improved compared to originally but has now a 3/10 "slight heavy" feeling in her substernal chest. Nausea has resolved with zofran. No V/D now or recently. Denies recurrent chest pain in the past, though did undergo a cardiac cath around 1999 which was normal per pt. Says has hx of anxiety but does not feel like this is her typical anxiety ' worry'. Denies recent known trauma, rashes, SOB outside of this acute event, cough, fevers or illness, extremity weakness/numbness/tingling, headache, abd pain, or other acute c/o. Father had angina but from brain cancer. Mother is alive with no known heart disease. Pt smoked approx 1 ppd for 40 years, quit in Jun 2017. On further review, pt states she was admitted to [facility] in Jun 2017 for CVA evaluation due to "memory problems" that persist since that time. Was told she had some carotid artery stenosis and placed on plavix + high dose lipitor. Has pending appts with her PCM (Dr. Bobo of [place]) for Oct, with a insurance processor for , and a psychologist (for the anxiety) on Oct. No prior known hx of CAD or SD. Furthermore, pt notes a 16 lb weight loss over past month, stating she simply isn't hungry anymore. Has been drinking ensure for the nutrition to "force myself to eat". 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) Multi-Drug Resistant Organisms History of MDRO: No Allergies Coded Allergies: Adhesives (Verified Allergy, Severe, RASH, 08/13/17) Penicillins (Verified Allergy, Intermediate, Hives, 06/05/17) Venlafaxine (Verified Allergy, Intermediate, Hives, 06/05/17) Home Medications Scheduled Alprazolam (Xanax), 1 MG PO HS Atorvastatin (Lipitor), 80 MG PO HS Clopidogrel Bisulfate (Plavix), 75 MG PO DAILY Nicotine (Nicoderm Cq 7 Mg Patch), 7 MG TD DAILY Scheduled PRN Alprazolam (Xanax), 0.5 MG PO BID PRN for Anxiety Ondansetron Hcl (Zofran), 4 MG SL PRN UD PRN for Nausea Review of Systems Constitutional: + sweats, No fever, No chills Respiratory: + shortness of breath, No cough Cardiovascular: + chest pain, + edema (minimal (B) LE) Abdomen: + nausea, No pain, No vomiting, No diarrhea Genitourinary - Female: No dysuria, No urinary frequency Neurologic: + memory loss, No numbness/tingling, No vertigo Psychiatric: + anxiety Hematologic / Lymphatic: No abnormal bleeding/bruising Integumentary: No rash Physical Exam Vital Signs Date Time Temp Pulse Resp B/P (MAP) Pulse Ox O2 Delivery O2 Flow Rate FiO2 08/13/17 16:00 71 23 118/77 99 Room Air 08/13/17 15:30 67 21 125/75 98 Room Air 08/13/17 15:08 67 16 128/76 100 Room Air 08/13/17 14:51 68 08/13/17 14:41 36.4 68 20 122/78 100 Room Air 08/13/17 14:41 100 Room Air 08/13/17 14:41 100 Room Air General Appearance: WD/WN, no apparent distress Head: normocephalic ENT: normal ENT inspection, pharynx normal Neck: supple, no adenopathy, no carotid bruits Respiratory/Chest: lungs clear, normal breath sounds, no respiratory distress Cardiovascular: regular rate, rhythm, no murmur, normal peripheral pulses Abdomen/GI: normal bowel sounds, non tender, soft Back: normal inspection, no CVA tenderness Extremities/Musculoskelatal: normal inspection, + pedal edema (minimal (B) LE edema from patella distally) Neurologic/Psych: alert, normal mood/affect, oriented x 3 Skin: warm/dry Diagnostics Laboratory Results Results Past 24 Hours Test 08/13/17 13:08 Range/Units White Blood Count 6.98 4.8-10.8 K/uL Red Blood Count 4.25 4.2-5.4 M/uL Hemoglobin 13.7 12.0-16.0 g/dL Hematocrit 41.2 37-47 % Mean Corpuscular Volume 96.9 80-100 fL Mean Corpuscular Hemoglobin 32.2 25-34 pg Mean Corpuscular Hemoglobin Concent 33.3 32-36 g/dl RDW Standard Deviation 46.7 36.4-46.3 fL RDW Coefficient of Variation 13.4 11.5-14.5 % Platelet Count 300 130-400 K/uL Mean Platelet Volume 9.9 7.4-10.4 fL Prothrombin Time 10.1 9.0-12.0 SECONDS Prothromb Time International Ratio 0.9 0.9-1.1 Activated Partial Thromboplast Time 24.3 21.0-31.0 SECONDS Partial Thromboplastin Ratio 0.9 Sodium Level 142 136-145 mmol/L Potassium Level 3.8 3.5-5.1 mmol/L Chloride Level 108 98-107 mmol/L Carbon Dioxide Level 28 21-32 mmol/L Anion Gap 6.0 3-11 mmol/L Blood Urea Nitrogen 6 7-18 mg/dl Creatinine 0.79 0.60-1.20 mg/dl Est Creatinine Clear Calc Drug Dose 76.4 ml/min Estimated GFR () 96.3 Estimated GFR (Non- 83.1 BUN/Creatinine Ratio 8.1 10-20 Random Glucose 68 70-99 mg/dl Calcium Level 9.6 8.5-10.1 mg/dl Total Bilirubin 0.3 0.2-1 mg/dl Aspartate Amino Transf (AST/SGOT) 12 15-37 U/L Alanine Aminotransferase (ALT/SGPT) 19 12-78 U/L Alkaline Phosphatase 61 45-117 U/L Troponin I < 0.015 0-0.045 ng/ml Total Protein 8.1 6.4-8.2 gm/dl Albumin 4.4 3.4-5.0 gm/dl Globulin 3.7 2.5-4.0 gm/dl Albumin/Globulin Ratio 1.2 0.9-2 Lipase 131 73-393 U/L Diagnostic Radiology 14Sep CXR one view portable: No active disease in the chest. CXR normal EKG EKG 21Sep at 1431: NSR 65, RBBB, no acute ischemic change, no ectopy No change from prior EKG Impression Assessment and Plan 56 yo female c/o acute substernal chest pain. DDx: ACS (NSTEMI, acute angina, developing STEMI), musculoskeletal pain, PE vs PTX vs PNA vs aortic vs esophageal disease, costochondritis. Chest pain: Sudden onset, substernal, diaphoresis, radiating, and relieved with NTG is concerning for ACS. - Initial EKG not suggestive of STEMI. Initial TnI negative. Vitals have been normal throughout sx. - Not acutely SOB at present. Normal RR, room SpO2, clear lungs on auscultation , and normal CXR. No clear risk factors for PE. - NTG prn for chest pain. - Plan trend EKG, trend TnI. - Plan exercise stress echocardiogram in morning of 22Sep. NPO for this and morning labs. - On statin and plavix at home. Will continue. Weight loss: Pt reported 16 lbs weight loss due to lack of appetite over past month. - consult GI for possible EGD Insomnia: On home xanax 1 mg PO q HS Hyperlipidemia: On lipitor 80 mg PO q HS. Anxiety: Above sx seem unrelated to anxiety, that it is more likely pt is acutely anxious about sx. - Given single dose of xanax 0.5 mg in ED. - also on wellbutrin at home. may worsen anxiety DVT prophy: Lovenox Code status: Full code JDH, PGY1 Family Medicine Level of Care Telemetry Resuscitation Status FULL RESUSCITATION VTE Prophylaxis VTE Risk Assessment Done? Y/N: Yes Risk Level: Moderate Given or contraindicated: Enoxaparin (Lovenox)SQ Resident Tracking Resident Involvement: Resident Care Provided Care Provided: Adult Hospital Medicine (admit H&P) Reviewed: Pt Seen/Exam by Me History 56 y/o F here with substernal chest pain Constitutional: denies: fever Respiratory: negative: short of breath Cardiovascular: reports chest pain Gastrointestinal/Abdominal: negative: abdominal pain General Appearance: no apparent distress Respiratory: lungs clear, no respiratory distress Cardiovascular: regular rate, rhythm Neurologic/Psychiatric: alert, oriented x 3 Assessment/Plan Resident Physician Supervision Note: I was present with Dr. Cazares in bedside. I verified the melissa history and physical, reviewed labs and image studies, discussed the case with the resident and agree with the findings and care plan.
[2017-08-13] MEDS ORDERED: ALPR1TAB3 PO (17:48)
[2017-08-13] MEDS ORDERED: POLYETHYLENE (MIRALAX) 17 GM PACK PO PRN (18:00)
[2017-08-13] MEDS ORDERED: ALUMINUM/MAGNESIUM/SIMETH (MAALOX MAX) 30 ML UDC PO PRN (18:00)
[2017-08-13] MEDS ORDERED: NITROGLYCERIN 0.4 MG SL PER TAB CHARGE SL PRN (18:00)
[2017-08-13] MEDS ORDERED: MAGNESIUM HYDROXIDE SUSP 30 ML UDC PO PRN (18:00)
[2017-08-13] MEDS ORDERED: ALPRAZOLAM 0.5 MG TAB PO PRN (18:00)
[2017-08-13] MEDS ORDERED: IV FLUIDS COMPLETED PRN (19:00)
[2017-08-13] MEDS ORDERED: ATORVASTATIN 40 MG TAB PO SCH (21:00)
[2017-08-13] MEDS ORDERED: BuPROPion XL 300 MG TABCR PO SCH (21:00)
[2017-08-13] MEDS ORDERED: ALPRAZOLAM 0.5 MG TAB PO SCH (21:00)
[2017-08-13 21:17] VITALS: BP 132/80; PULSE 74; TEMP 36.6; O2SAT 96; Ht 170.2 cm; Wt 67.3 kg
[2017-08-13] MEDS: ACETAMINOPHEN 325 MG TAB PO PRN (21:46)
[2017-08-13] MEDS: SODIUM CHLORIDE 0.9% 1000ML 1,000 ML IV SCH (21:59)
[2017-08-13] MEDS ORDERED: PNEUMOCOCCAL ADMINISTRATION CHARGE ONE (22:00)
[2017-08-13] MEDS ORDERED: ENOXAPARIN 40 MG/0.4 ML SYR SC SCH (22:00)
[2017-08-13] MEDS ORDERED: PNEUMOCOCCAL POLYSACCHARIDES 25 MCG/0.5 ML VIAL/SYR IM. ONE (22:00)
[2017-08-13] MEDS ORDERED: INFLUENZA VIRUS QUAD VACCINE 0.5 ML SYR IM. ONE (23:30)
[2017-08-13] MEDS ORDERED: INFLUENZA ADMINISTRATION CHARGE ONE (23:30)
[2017-08-13 23:48] LABS: CKMB/CK RATIO 2.1 (0-3.0)
[2017-08-14] VITALS: BP 109/70; PULSE 67; TEMP 36.7; O2SAT 95
[2017-08-14 04:00] VITALS: BP 110/69; PULSE 72; TEMP 36.9; O2SAT 98
[2017-08-14] MEDS ORDERED: NURSING VERBAL MED ORDER ONE (04:45)
[2017-08-14] MEDS ORDERED: ACETAMINOPHEN IV 650 MG in EMPTY BAG 0 ML IV STA (04:46)
--- NOTE | 2017-08-14 05:40 | Family Medicine Progress Note ---
Progress Note Date of Service Aug 14, 2017. Subjective Pt evaluation today including: conversation w/ patient, physical exam, chart review, lab review, review of studies Found pt resting comfortably in bed. Says her chest discomfort still hasn't completely resolved, approx 2/10 at present, but a bit improved with tylenol overnight. Denies SOB. Some mild nausea, attributes to being NPO. No V/D, abd pain, or other acute overnight pt concerns. Constitutional: + weight loss (reported as outpt), No fever Respiratory: No cough, No shortness of breath Cardiovascular: + chest pain (improved, not resolved), No edema Abdomen: + nausea, No pain, No vomiting, No diarrhea Medications Current Inpatient Medications Medications (Trade) Dose Ordered Sig/Shania Route Start Time Stop Time Status Last Admin Dose Admin Enoxaparin Sodium (Lovenox Inj) 40 mg Q24H SC 08/13/17 22:00 09/12/17 21:59 Acetaminophen (Tylenol Tab) 650 mg Q4H PRN PO 08/13/17 18:00 09/12/17 17:59 08/13/17 21:46 650 MG Al Hydrox/Mg Hydrox/Simethicone (Maalox Max Susp) 15 ml Q4H PRN PO 08/13/17 18:00 09/12/17 17:59 Magnesium Hydroxide (Milk Of Magnesia Susp) 30 ml Q12H PRN PO 08/13/17 18:00 09/12/17 17:59 Ondansetron HCl (Zofran Inj) 4 mg Q6H PRN IV 08/13/17 18:00 09/12/17 17:59 Nitroglycerin (Nitrostat Tab) 0.4 mg UD PRN SL 08/13/17 18:00 09/12/17 17:59 Aspirin (Ecotrin Tab) 81 mg QAM PO 08/14/17 09:00 09/13/17 08:59 Polyethylene (Miralax Powder Packet) 17 gm DAILY PRN PO 08/13/17 18:00 09/12/17 17:59 Alprazolam (Xanax Tab) 0.5 mg BID PRN PO 08/13/17 18:00 09/12/17 17:59 Alprazolam (Xanax Tab) 1 mg HS PO 08/13/17 21:00 09/12/17 20:59 08/13/17 21:45 1 MG Atorvastatin Calcium (Lipitor Tab) 80 mg HS PO 08/13/17 21:00 09/12/17 20:59 08/13/17 21:45 80 MG Clopidogrel Bisulfate (plAVix TAB) 75 mg DAILY PO 08/14/17 09:00 09/13/17 08:59 Nicotine (Nicoderm Cq 7 Mg Patch) 1 patch DAILY TD 08/14/17 09:00 09/13/17 08:59 Bupropion HCl (Wellbutrin-Xl Tab) 300 mg QPM PO 08/13/17 21:00 09/12/17 20:59 Sodium Chloride 1,000 ml @ 75 mls/hr [id number] IV 08/13/17 21:00 09/12/17 20:59 08/13/17 21:59 75 MLS/HR Miscellaneous (Iv Fluids Completed) 1 ea PRN PRN N/A 08/13/17 19:00 08/13/18 18:59 Objective Vital Signs Date Time Temp Pulse Resp B/P (MAP) Pulse Ox O2 Delivery O2 Flow Rate FiO2 08/14/17 04:00 Room Air 08/14/17 04:00 36.9 72 20 110/69 (83) 98 Room Air 08/14/17 00:00 Room Air 08/14/17 00:00 36.7 67 20 109/70 (83) 95 Room Air 08/13/17 21:17 36.6 74 20 132/80 96 Room Air 08/13/17 20:15 69 15 118/76 96 08/13/17 19:02 79 15 120/79 97 Room Air 08/13/17 18:30 81 13 118/72 97 Room Air 08/13/17 17:00 76 19 109/70 98 Room Air 08/13/17 16:00 71 23 118/77 99 Room Air 08/13/17 15:30 67 21 125/75 98 Room Air 08/13/17 15:08 67 16 128/76 100 Room Air 08/13/17 14:51 68 08/13/17 14:41 36.4 68 20 122/78 100 Room Air 08/13/17 14:41 100 Room Air 08/13/17 14:41 100 Room Air Physical Exam General Appearance: no apparent distress Respiratory/Chest: lungs clear, normal breath sounds, no respiratory distress Cardiovascular: regular rate, rhythm, no edema, no murmur Abdomen: normal bowel sounds, non tender, soft Extremities: + pedal edema (minimal (B) pretibial edema, unchanged from 21Sep) Neurologic/Psychiatric: alert Laboratory Results 08/14/17 05:49 Red Blood Count 3.79, Mean Corpuscular Volume 99.2, Mean Corpuscular Hemoglobin 30.3, Mean Corpuscular Hemoglobin Concent 30.6, Mean Platelet Volume 9.3, Neutrophils (%) (Auto) 68.1, Lymphocytes (%) (Auto) 21.3, Monocytes (%) (Auto) 8.3, Eosinophils (%) (Auto) 1.6, Basophils (%) (Auto) 0.6, Neutrophils # (Auto) 4.73, Lymphocytes # (Auto) 1.48, Monocytes # (Auto) 0.58, Eosinophils # (Auto) 0.11, Basophils # (Auto) 0.04 08/14/17 05:49 Test 08/13/17 13:08 08/14/17 05:49 08/14/17 05:57 Prothrombin Time 10.1 SECONDS (9.0-12.0) Prothromb Time International Ratio 0.9 (0.9-1.1) Activated Partial Thromboplast Time 24.3 SECONDS (21.0-31.0) Partial Thromboplastin Ratio 0.9 Total Bilirubin 0.3 mg/dl (0.2-1) Aspartate Amino Transf (AST/SGOT) 12 U/L (15-37) Alanine Aminotransferase (ALT/SGPT) 19 U/L (12-78) Alkaline Phosphatase 61 U/L (45-117) Total Protein 8.1 gm/dl (6.4-8.2) Albumin 4.4 gm/dl (3.4-5.0) Globulin 3.7 gm/dl (2.5-4.0) Albumin/Globulin Ratio 1.2 (0.9-2) Lipase 131 U/L (73-393) White Blood Count 6.95 K/uL (4.8-10.8) Red Blood Count 3.79 M/uL (4.2-5.4) Hemoglobin 11.5 g/dL (12.0-16.0) Hematocrit 37.6 % (37-47) Mean Corpuscular Volume 99.2 fL (80-100) Mean Corpuscular Hemoglobin 30.3 pg (25-34) Mean Corpuscular Hemoglobin Concent 30.6 g/dl (32-36) Platelet Count 231 K/uL (130-400) Mean Platelet Volume 9.3 fL (7.4-10.4) Neutrophils (%) (Auto) 68.1 % Lymphocytes (%) (Auto) 21.3 % Monocytes (%) (Auto) 8.3 % Eosinophils (%) (Auto) 1.6 % Basophils (%) (Auto) 0.6 % Neutrophils # (Auto) 4.73 K/uL (1.4-6.5) Lymphocytes # (Auto) 1.48 K/uL (1.2-3.4) Monocytes # (Auto) 0.58 K/uL (0.11-0.59) Eosinophils # (Auto) 0.11 K/uL (0-0.5) Basophils # (Auto) 0.04 K/uL (0-0.2) RDW Standard Deviation 48.6 fL (36.4-46.3) RDW Coefficient of Variation 13.5 % (11.5-14.5) Immature Granulocyte % (Auto) 0.1 % Immature Granulocyte # (Auto) 0.01 K/uL (0.00-0.02) Anion Gap 5.0 mmol/L (3-11) Est Creatinine Clear Calc Drug Dose 77.4 ml/min Estimated GFR () 97.8 Estimated GFR (Non- 84.4 BUN/Creatinine Ratio 7.9 (10-20) Calcium Level 8.6 mg/dl (8.5-10.1) Total Creatine Kinase 39 U/L (26-192) Creatine Kinase MB 0.6 ng/ml (0.5-3.6) Creatine Kinase MB Ratio 1.5 (0-3.0) Troponin I < 0.015 ng/ml (0-0.045) Triglycerides Level 127 mg/dl (0-150) Cholesterol Level 158 mg/dl (0-200) HDL Cholesterol 50 mg/dl LDL Cholesterol, Calculated 83 mg/dl VLDL Cholesterol, Calculated 25 mg/dl Cholesterol/HDL Ratio 3.2 Thyroid Stimulating Hormone (TSH) 3.630 uIu/ml (0.300-4.500) Bedside Glucose 82 mg/dl (70-90) Assessment and Plan 56 yo female c/o acute substernal chest pain. DDx: ACS (NSTEMI, acute angina, developing STEMI), musculoskeletal pain, PE vs PTX vs PNA vs aortic vs esophageal disease, costochondritis. Chest pain: Sudden onset, substernal, diaphoresis, radiating, and relieved with NTG is concerning for ACS. - EKG x3 not suggestive of STEMI. Serial TnI x3 negative. Vitals in normal ranges thus far. - Denies SOB at present. Normal RR, room SpO2, clear lungs on auscultation, and normal CXR. No clear risk factors for PE. - NTG prn for chest pain, though has not required further since ED admit. - Plan exercise stress echocardiogram in morning of 22Sep. NPO for this. Weight loss: Pt reported 16 lbs weight loss due to lack of appetite over past month. - Consulted GI, appreciate recs. Insomnia: On home xanax 1 mg PO q HS. Hyperlipidemia: On lipitor 80 mg PO q HS. Anxiety: Above sx seem unrelated to anxiety, that it is more likely pt is acutely anxious about sx. - Given single dose of xanax 0.5 mg in ED. Has her home xanax prn written for while inpt. DVT prophy: Lovenox (though pt declined on 21Sep). Code status: Full code Will discuss all the above on attending rounds this morning. BRIAN, PGY1 Clerk [employer] Tr[employer] Resident Involvement: Resident Care Provided Care Provided: Adult Hospital Medicine (inpt rounds)
[2017-08-14 05:59] LABS: BASO % 0.6 %; BASO ABS # 0.04 K/uL (0-0.2); COMPLETE YES; EOS % 1.6 %; HEMATOCRIT 37.6 % (37-47); IG% 0.1 %; LYMPH % 21.3 %; LYMPH ABS # 1.48 K/uL (1.2-3.4); MEAN CELL VOLUME 99.2 fL (80-100); MEAN CORPUSCULAR HEMOGLOBIN 30.3 pg (25-34); MEAN CORPUSCULAR HGB CONC 30.6 g/dl (32-36); MEAN PLATELET VOLUME 9.3 fL (7.4-10.4); MONO % 8.3 %; NEUT % 68.1 %; PLATELET COUNT 231 K/uL (130-400); RED BLOOD COUNT 3.79 M/uL (4.2-5.4); WHITE BLOOD COUNT 6.95 K/uL (4.8-10.8)
[2017-08-14 06:29] LABS: BLOOD UREA NITROGEN 6 mg/dl (7-18); BUN/CREATININE RATIO 7.9 (10-20); CALCIUM 8.6 mg/dl (8.5-10.1); CARBON DIOXIDE 27 mmol/L (21-32); CHLORIDE 111 mmol/L (98-107); CREATININE 0.78 mg/dl (0.60-1.20); GLUCOSE 87 mg/dl (70-99); POTASSIUM 4.3 mmol/L (3.5-5.1); SODIUM 143 mmol/L (136-145)
[2017-08-14 06:40] LABS: CHOLESTEROL 158 mg/dl (0-200); CHOLESTEROL/HDL RATIO 3.2; CKMB/CK RATIO 1.5 (0-3.0); HDL CHOLESTEROL 50 mg/dl; LDL CHOLESTEROL CALCULATED 83 mg/dl; TRIGLYCERIDES 127 mg/dl (0-150); VERY LOW DENSITY LIPOPROT CALC 25 mg/dl
[2017-08-14 07:42] VITALS: BP 116/73; PULSE 82; TEMP 36.7; O2SAT 94
[2017-08-14] MEDS: ONDANSETRON INJ 2 MG/ML 2 ML VIAL IV PRN ×2 (07:46→17:39)
[2017-08-14] MEDS ORDERED: ASPIRIN 81 MG ECTAB PO SCH (09:00)
[2017-08-14] MEDS ORDERED: CLOPIDOGREL BISULFATE 75 MG TAB PO SCH (09:00)
[2017-08-14] MEDS ORDERED: NICOTINE 7 MG/24 HR TDSY TD SCH (09:00)
[2017-08-14] MEDS: SODIUM CHLORIDE 0.9% 1000ML 1,000 ML IV SCH (09:36)
--- NOTE | 2017-08-14 09:46 | Gastrointestinal Consultation ---
Gastrointestinal Consultation Date of Consultation: Aug 14, 2017 Attending Physician: Dr. Coffey Consulting Physician: Audra Lee PA-C Reason for Consultation: Abnormal weight loss, decreased appetite History of Present Illness Patient is a 56 year old female who presented to the hospital with complaints of chest pain. She reports that she was experiencing chest pain with radiation down her left arm. She also reports a 1 month history of abnormal weight loss. She reports she has lost 16 pounds. She reports that she has had indigestion 3- 4 times per week. She reports fluctuation of her bowel habits between diarrhea & constipation. She denies vomiting. She reports nausea. She has a 40 year history of smoking, though she did quit recently. She has not noticed any rectal bleeding. She denies a family history of GI malignancy or IBD. She has never had a colonoscopy or EGD. She denies significant abdominal pain. She does not notice any particular trigger for her symptoms. She denies NSAID use. She had chest xray since admission that did not indicate any suspicious findings. Her H/H is presently 11.5/37.6. 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) Allergies Coded Allergies: Adhesives (Verified Allergy, Severe, RASH, 08/13/17) Penicillins (Verified Allergy, Intermediate, Hives, 06/05/17) Venlafaxine (Verified Allergy, Intermediate, Hives, 06/05/17) Current Medications Home Meds and Scripts Medications Dose Route/Sig Max Daily Dose Days Date Category Zofran (Ondansetron HCl) 4 Mg Tab 4 Mg SL PRN UD PRN 08/13/17 Reported Nicoderm Cq 7 Mg Patch (Nicotine) 7 Mg/24 Hr Dis 7 Mg TD DAILY 08/13/17 Reported Plavix (Clopidogrel Bisulfate) 75 Mg Tab 75 Mg PO DAILY 08/13/17 Reported Lipitor (Atorvastatin Calcium) 80 Mg Tab 80 Mg PO HS 08/13/17 Reported Xanax (Alprazolam) 0.5 Mg Tab 0.5 Mg PO BID PRN 08/13/17 Reported Xanax (Alprazolam) 1 Mg Tab 1 Mg PO HS 06/05/17 Reported Review of Systems Constitutional: No problem reported Eyes: No problem reported Respiratory: No cough, No shortness of breath Cardiac: + chest pain (improving) Abdomen: + nausea, + diarrhea, + constipation, No pain, No vomiting, No GI bleeding Musculoskeletal: No joint pain Psych: + anxiety Skin: + problem reported Physical Exam Date Time Temp Pulse Resp B/P (MAP) Pulse Ox O2 Delivery O2 Flow Rate FiO2 08/14/17 07:42 36.7 82 16 116/73 (87) 94 Room Air 08/14/17 04:00 Room Air 08/14/17 04:00 36.9 72 20 110/69 (83) 98 Room Air 08/14/17 00:00 Room Air 08/14/17 00:00 36.7 67 20 109/70 (83) 95 Room Air 08/13/17 21:17 36.6 74 20 132/80 96 Room Air 08/13/17 20:15 69 15 118/76 96 08/13/17 19:02 79 15 120/79 97 Room Air 08/13/17 18:30 81 13 118/72 97 Room Air 08/13/17 17:00 76 19 109/70 98 Room Air 08/13/17 16:00 71 23 118/77 99 Room Air 08/13/17 15:30 67 21 125/75 98 Room Air 08/13/17 15:08 67 16 128/76 100 Room Air 08/13/17 14:51 68 08/13/17 14:41 36.4 68 20 122/78 100 Room Air 08/13/17 14:41 100 Room Air 08/13/17 14:41 100 Room Air General Appearance: WD/WN, no apparent distress Eyes: normal inspection, PERRL Respiratory/Chest: lungs clear, normal breath sounds Cardiovascular: regular rate, rhythm Abdomen: normal bowel sounds, non tender, soft Extremities: non-tender Neurologic/Psych: alert, oriented x 3 Skin: normal color Laboratory Results Last 24 Hours Test 08/13/17 13:08 08/13/17 23:12 08/14/17 05:49 08/14/17 05:57 White Blood Count 6.98 K/uL 6.95 K/uL Red Blood Count 4.25 M/uL 3.79 M/uL Hemoglobin 13.7 g/dL 11.5 g/dL Hematocrit 41.2 % 37.6 % Mean Corpuscular Volume 96.9 fL 99.2 fL Mean Corpuscular Hemoglobin 32.2 pg 30.3 pg Mean Corpuscular Hemoglobin Concent 33.3 g/dl 30.6 g/dl RDW Standard Deviation 46.7 fL 48.6 fL RDW Coefficient of Variation 13.4 % 13.5 % Platelet Count 300 K/uL 231 K/uL Mean Platelet Volume 9.9 fL 9.3 fL Prothrombin Time 10.1 SECONDS Prothromb Time International Ratio 0.9 Activated Partial Thromboplast Time 24.3 SECONDS Partial Thromboplastin Ratio 0.9 Sodium Level 142 mmol/L 143 mmol/L Potassium Level 3.8 mmol/L 4.3 mmol/L Chloride Level 108 mmol/L 111 mmol/L Carbon Dioxide Level 28 mmol/L 27 mmol/L Anion Gap 6.0 mmol/L 5.0 mmol/L Blood Urea Nitrogen 6 mg/dl 6 mg/dl Creatinine 0.79 mg/dl 0.78 mg/dl Est Creatinine Clear Calc Drug Dose 76.4 ml/min 77.4 ml/min Estimated GFR () 96.3 97.8 Estimated GFR (Non- 83.1 84.4 BUN/Creatinine Ratio 8.1 7.9 Random Glucose 68 mg/dl 87 mg/dl Calcium Level 9.6 mg/dl 8.6 mg/dl Total Bilirubin 0.3 mg/dl Aspartate Amino Transf (AST/SGOT) 12 U/L Alanine Aminotransferase (ALT/SGPT) 19 U/L Alkaline Phosphatase 61 U/L Troponin I < 0.015 ng/ml < 0.015 ng/ml < 0.015 ng/ml Total Protein 8.1 gm/dl Albumin 4.4 gm/dl Globulin 3.7 gm/dl Albumin/Globulin Ratio 1.2 Lipase 131 U/L Total Creatine Kinase 38 U/L 39 U/L Creatine Kinase MB 0.8 ng/ml 0.6 ng/ml Creatine Kinase MB Ratio 2.1 1.5 Neutrophils (%) (Auto) 68.1 % Lymphocytes (%) (Auto) 21.3 % Monocytes (%) (Auto) 8.3 % Eosinophils (%) (Auto) 1.6 % Basophils (%) (Auto) 0.6 % Neutrophils # (Auto) 4.73 K/uL Lymphocytes # (Auto) 1.48 K/uL Monocytes # (Auto) 0.58 K/uL Eosinophils # (Auto) 0.11 K/uL Basophils # (Auto) 0.04 K/uL Immature Granulocyte % (Auto) 0.1 % Immature Granulocyte # (Auto) 0.01 K/uL Triglycerides Level 127 mg/dl Cholesterol Level 158 mg/dl HDL Cholesterol 50 mg/dl LDL Cholesterol, Calculated 83 mg/dl VLDL Cholesterol, Calculated 25 mg/dl Cholesterol/HDL Ratio 3.2 Thyroid Stimulating Hormone (TSH) 3.630 uIu/ml Bedside Glucose 82 mg/dl Impression Patient is a 56 year old female with chest pain (improved since admission) who has experienced a 16 pound unintentional weight loss accompanied by decreased appetite, diarrhea, constipation, & heartburn. Plan 1) EGD for further evaluation of weight loss. Patient will eventually need a colonoscopy (she has never had one), however timing to be determined as it can likely be done as an outpatient. Further evaluation of weight loss including CT scan of the abdomen/pelvis will be considered pending her upper endoscopy. 2) Protonix 40 mg daily. 3) Supportive care per primary team. Thank you for allowing us to participate in the care of this patient. If you should have any further questions or concerns, do not hesitate to contact us. Agree with PACO Mccall as above Abd: Soft, NT, ND, +BS EGD today Continue current therapy
[2017-08-14] MEDS ORDERED: PANTOprazole INJ 40 MG in SYRINGE 0 ML IV SCH (11:00)
[2017-08-14 12:31] VITALS: BP 144/77; PULSE 78; TEMP 36.7; O2SAT 95
[2017-08-14 12:52] LABS: CKMB/CK RATIO 1.3 (0-3.0)
[2017-08-14] MEDS ORDERED: PROPOFOL IV EMULSION 10 MG/ML 20 ML VIAL IV ONE (14:01)
[2017-08-14] MEDS ORDERED: LIDOCAINE HCL 2% 2 ML VIAL (20MG/ML) ONE (14:01)
--- NOTE | 2017-08-14 14:45 | Anesthesiology Progress Note ---
Anesthesia Post Op Note Date & Time Aug 14, 2017 at 14:45 Vital Signs Pain Intensity: 0 Vital Signs Past 12 Hours Date Time Temp Pulse Resp B/P (MAP) Pulse Ox O2 Delivery O2 Flow Rate FiO2 08/14/17 14:34 83 20 126/69 (88) 97 Room Air 08/14/17 13:31 36.8 72 20 118/58 (78) 97 Room Air 08/14/17 12:31 36.7 78 16 144/77 95 Room Air 08/14/17 12:00 Room Air 08/14/17 08:00 Room Air 08/14/17 07:42 36.7 82 16 116/73 (87) 94 Room Air 08/14/17 04:00 Room Air 08/14/17 04:00 36.9 72 20 110/69 (83) 98 Room Air Notes Mental Status: alert / awake / arousable, participated in evaluation Pt Amnestic to Procedure: Yes Nausea / Vomiting: adequately controlled Pain: adequately controlled Airway Patency, RR, SpO2: stable & adequate BP & HR: stable & adequate Hydration State: stable & adequate Anesthetic Complications: no major complications apparent
--- NOTE | 2017-08-14 14:57 | EXERCISE STRESS ECHO ---
*NOTICE TO RECEIVING CONSTITUTION PARTY AGENCY This information is strictly Confidential and protected under [place] law. [place] law prohibits you from making any further disclosure of this information unless further disclosure is expressly permitted by the written consent of the person to whom it pertains or is authorized by law. A general authorization for the release of medical or other information is not sufficient for this purpose. Hospital accepts no responsibility if the information is made available to any other person, INCLUDING THE PATIENT. Interpretation Summary * Name: BRANDIE GORMAN Study Date: 08/14/2017 11:01 AM BP: 130/72 mmHg * Patient Location: [facility]\S\N280\S\2 HR: 65 * : 1960 (M/d/yyyy) Gender: Female Height: 67 in * Age: 56 yrs Ethnicity: [place] Weight: 149 lb * Ordering Physician: Bipin Cazares * Referring Physician: Self, Referred * Performed By: Herman Green RCS * * Reason For Study: Chest Pain * BSA: 1.8 m2 * -- Conclusions -- * 1. Normal stress echocardiogram at 7.2 METS and a peak heart rate of 85% maximum predicted. * 2. No exercise-induced chest pain. * 3. No EKG changes over the baseline abnormality. * 4. Baseline echocardiogram notes normal left ventricular systolic function. Procedure Details * ECHOEX, CPT #[id number] Left Ventricle * Left ventricular systolic function is normal. * Resting wall motion: Normal. Stress wall motion: Appropriate increase in Left ventricular systolic function and decrease in cavity size. No stress induced segmental wall motion abnormalities. Stress Parameters * The baseline electrocardiogram was abnormal. It displayed right bundle branch block. * There was no new ST segment depression. * Rest heart rate was '65' BPM. * Rest blood pressure was '130/72' * Maximum heart rate achieved was 139 bpm. * Maximum heart rate was 85 % of maximum age-predicted heart rate. * Maximum blood pressure was '149/71' * Total exercise time was '6:11' * Maximum exercise MET level achieved was '7.2' METS * Maximum treadmill speed was '3.4' miles per hour. * Maximum treadmill elevation was '14'% grade. * Exercise was terminated due to 'fatigue' * Normal blood pressure response to exercise.
--- NOTE | 2017-08-14 15:09 | Discharge Summary ---
Discharge Summary Date of Service Aug 14, 2017. (Josh. Cazares M.D.) Discharge Summary Admission Date: Aug 13, 2017 at 18:01 Discharge Date: Aug 14, 2017 Discharge Disposition: Home Principal Diagnosis: Chest pain Problems/Secondary Diagnoses: Unintended weight loss Procedures: 14Aug2017 Exercise stress transthoracic echocardiogram * -- Conclusions -- * 1. Normal stress echocardiogram at 7.2 METS and a peak heart rate of 85% maximum predicted. * 2. No exercise-induced chest pain. * 3. No EKG changes over the baseline abnormality. * 4. Baseline echocardiogram notes normal left ventricular systolic function. * The baseline electrocardiogram was abnormal. It displayed right bundle branch block. -------- Consultations: Gastroenterology consult 14Aug2017 HPI: - Patient is a 56 year old female who presented to the hospital with complaints of chest pain. She reports that she was experiencing chest pain with radiation down her left arm. She also reports a 1 month history of abnormal weight loss. She reports she has lost 16 pounds. She reports that she has had indigestion 3- 4 times per week. She reports fluctuation of her bowel habits between diarrhea & constipation. She denies vomiting. She reports nausea. She has a 40 year history of smoking, though she did quit recently. She has not noticed any rectal bleeding. - She denies a family history of GI malignancy or IBD. She has never had a colonoscopy or EGD. She denies significant abdominal pain. She does not notice any particular trigger for her symptoms. She denies NSAID use. - She had chest xray since admission that did not indicate any suspicious findings. Her H/H is presently 11.5/37.6. Initial plan: 1) EGD for further evaluation of weight loss. Patient will eventually need a colonoscopy (she has never had one), however timing to be determined as it can likely be done as an outpatient. Further evaluation of weight loss including CT scan of the abdomen/pelvis will be considered pending her upper endoscopy. 2) Protonix 40 mg daily. 3) Supportive care per primary team. By verbal report, EGD on was unremarkable. Rec'd outpt colonoscopy. Formal report pending at time of patient d/c home. (Josh. Cazares M.D.) Discharge Exam Review of Systems: Constitutional: No fever Respiratory: No cough, No shortness of breath Cardiovascular: No chest pain (resolved), No edema Abdomen: No pain, No nausea, No vomiting, No diarrhea Physical Exam: General Appearance: WD/WN, no apparent distress Respiratory/Chest: lungs clear, normal breath sounds, no respiratory distress Cardiovascular: regular rate, rhythm, no edema, no murmur Abdomen / GI: normal bowel sounds, non tender, soft Skin: warm/dry (Josh. Cazares M.D.) admitted for chest pain. no further chest pain Review of Systems: Constitutional: No fever Respiratory: No shortness of breath Cardiovascular: No chest pain Physical Exam: General Appearance: no apparent distress Respiratory/Chest: lungs clear, no respiratory distress Cardiovascular: regular rate, rhythm Abdomen / GI: normal bowel sounds, non tender, soft Neurologic/Psychiatric: alert, oriented x 3 Skin: warm/dry (Leslie Colón M.D.) Hospital Course HPI from admission on 13Aug2017 56yo female was sitting at her desk at work around 1245 today (21Sep) when she had sudden substernal chest tightness, heaviness, radiating to left shoulder, 7/ 10 pain scale, with SOB, nausea, and diaphoresis. Called EMS immediately. - EMS: ASA 324, relieved pain a little bit. Single spray NTG sublingual, pain to 2/10. Zofran 4 mg as well. - In ED on arrival: NTG 2% ointment one inch, zofran 4 mg IV, xanax 0.5 mg PO. On my interview, pt states she still feels improved compared to originally but has now a 3/10 "slight heavy" feeling in her substernal chest. Nausea has resolved with zofran. No V/D now or recently. Denies recurrent chest pain in the past, though did undergo a cardiac cath around 1999 which was normal per pt. Says has hx of anxiety but does not feel like this is her typical anxiety ' worry'. Denies recent known trauma, rashes, SOB outside of this acute event, cough, fevers or illness, extremity weakness/numbness/tingling, headache, abd pain, or other acute c/o. Father had angina but from brain cancer. Mother is alive with no known heart disease. Pt smoked approx 1 ppd for 40 years, quit in Jun 2017. On further review, pt states she was admitted to [facility] in Jun 2017 for CVA evaluation due to "memory problems" that persist since that time. Was told she had some carotid artery stenosis and placed on plavix + high dose lipitor. Has pending appts with her PCM (Dr. Bobo of [facility]) for Oct, with a naphthalene still operator for Oct, and a psychologist (for the anxiety) on Oct. No prior known hx of CAD or MS. Furthermore, pt notes a 16 lb weight loss over past month, stating she simply isn't hungry anymore. Has been drinking ensure for the nutrition to "force myself to eat". -------- Plan at time of discharge on 14Aug2017 Chest pain: Sudden onset, substernal, diaphoresis, radiating, and relieved with NTG initially concerning for ACS. - EKG x3 not suggestive of STEMI. Serial TnI x3 negative. Vitals in normal ranges thus far. - Denies SOB at present. Normal RR, room SpO2, clear lungs on auscultation, and normal CXR. No clear risk factors for PE. - NTG prn for chest pain, though has not required further since ED admit. - 22Sep exercise stress JOHAN was unremarkable. - Pt's chest pain had completely resolved s/p the stress test. Exact dx unclear at this point, though may be musculoskeletal in origin. Rec'd close PCM f/u for further eval of same. Weight loss: Pt reported 16 lbs weight loss due to lack of appetite over past month. Says is not hungry but is unsure why. Ongoing indigestion 3-4 times per week. Fluctuation between diarrhea and constipation. Positive recent nausea, no emesis. Denies rectal bleeding, family hx of GI cancer or IBD. Has never had a colonoscopy (but was told she had diverticulitis on a prior CT abdomen. Denies NSAID use. - She had chest xray since admission that did not indicate any suspicious findings. Her H/H is presently 11.5/37.6. - GI consulted, performed EGD, by verbal report was normal (formal report pending at time of pt d/c). Rec'd outpt colonoscopy for further evaluation. - Rx protonix 40 mg PO q day. - Rec'd pt f/u with PCM as well for further evaluation of her lack of appetite and weight loss. Insomnia: On home xanax 1 mg PO q HS. Hyperlipidemia: On lipitor 80 mg PO q HS. Anxiety: Above chest sx seem unrelated to anxiety, and that it is more likely pt is acutely anxious about sx. - Given single dose of xanax 0.5 mg in ED. Has her home xanax prn written for while inpt. - Discussed with pt role of these recent medical findings and impact on anxiety. Rec'd PCM f/u to discuss the same, with possible further referral to mental health provider prn. --------- Total Time Spent: Less than 30 minutes This includes examination of the patient, discharge planning, medication reconciliation, and communication with other providers. (Josh. Cazares M.D.) Resident Physician Supervision Note: I was present with Dr. Cazares in bedside. I verified the melissa history and physical, reviewed labs and image studies, discussed the case with the resident and agree with the findings and care plan. Total Time Spent: Greater than 30 minutes (35) (Leslie Colón M.D.) Discharge Instructions Please refer to the electronic Patient Visit Report (Discharge Instructions) for additional information. (Josh. Cazares M.D.) Follow-Up - Primary care provider - Gastroenterology (Josh. Cazares M.D.) Additional Copies To Daniel Bobo D.O.
--- NOTE | 2017-08-14 15:16 | Discharge Instructions ---
Discharge Instructions Date of Service Aug 14, 2017. Admission Reason for Admission: Precordial Chest Pain Discharge Discharge Diagnosis / Problem: Chest pain Discharge Goals Goal(s): Decrease discomfort, Diagnostic testing Activity Recommendations Activity Limitations: resume your previous activity . Instructions / Follow-Up Instructions / Follow-Up You were admitted to the hospital for further evaluation of your chest pain. During your stay, a variety of both initial and more definitive testing ( including an exercise stress echocardiogram) was performed. The results of all these tests suggest that the cause of your chest pain was not due to a problem with your heart, lungs, or other immediately life-threatening problems within your chest. There remain many possibilities for the source of your chest pain, but a problem with the muscle within the chest wall itself is the most likely cause. Because of your discussion of your unintentional 16 pound weight loss over the past month, we consulted gastroenterology (GI). They performed an upper endoscopy (also called EGD) which did not show any clear cause for your weight loss. The GI doctor believes it is best that you follow up with them for further evaluation and likely an outpatient colonoscopy. Please follow up with your primary care provider as soon as possible for follow- up care to this hospital stay, including further discussion on possible causes of your acute chest pain and evaluation of your weight loss. Return to the nearest emergency department if you have any return of severe or worrisome chest pain, difficulty breathing, uncontrolled vomiting or diarrhea, abdominal pain, or with any other acute concerns. Current Hospital Diet Patient's current hospital diet: AHA Diet (Heart Healthy) Discharge Diet Recommended Diet: AHA Diet (Heart Healthy) Procedures Procedures Performed: EGD Pending Studies Studies pending at discharge: no Laboratory Results Hemoglobin A1c Test 06/05/17 17:00 Range/Units Estimated Average Glucose 111 mg/dl Hemoglobin A1c 5.5 4.5-5.6 % Lipid Panel Test 08/14/17 05:49 Range/Units Triglycerides Level 127 0-150 mg/dl Cholesterol Level 158 0-200 mg/dl HDL Cholesterol 50 mg/dl Cholesterol/HDL Ratio 3.2 LDL Cholesterol, Calculated 83 mg/dl Medical Emergencies . Who to Call and When: Medical Emergencies: If at any time you feel your situation is an emergency, please call 911 immediately. . Non-Emergent Contact Non-Emergency issues call your: Primary Care Provider, [facility] [employer] . . "Provider Documentation" section prepared by Bipin Cazares. . VTE Core Measure Inpt VTE Proph given/why not?: Enoxaparin (Lovenox)SQ
[2017-08-14 15:44] VITALS: BP 116/68; PULSE 70; TEMP 36.8; O2SAT 97
[2017-08-14] MEDS: ACETAMINOPHEN 325 MG TAB PO PRN (15:45)
[2017-08-14] MEDS ORDERED: PANT40TA PO ×2 (17:18→17:21)
[2017-08-14 17:32] VITALS: BP 116/68; PULSE 70; TEMP 36.8; O2SAT 97
--- NOTE | 2017-08-17 17:58 | GI REPORT ---
Procedure Date: 08/14/2017 1:57 PM Procedure: Upper GI endoscopy Indications: Weight loss Medicines: Monitored Anesthesia Care Complications: No immediate complications. Estimated Blood Loss: Estimated blood loss: none. Procedure: Pre-Anesthesia Assessment: - Prior to the procedure, a History and Physical was performed, and patient medications and allergies were reviewed. The patient's tolerance of previous anesthesia was also reviewed. The risks and benefits of the procedure and the sedation options and risks were discussed with the patient. All questions were answered, and informed consent was obtained. Prior Anticoagulants: The patient has taken no previous anticoagulant or antiplatelet agents. ASA Grade Assessment: III - A patient with severe systemic disease. After reviewing the risks and benefits, the patient was deemed in satisfactory condition to undergo the procedure. After obtaining informed consent, the endoscope was passed under direct vision. Throughout the procedure, the patient's blood pressure, pulse, and oxygen saturations were monitored continuously. The scope was introduced through the mouth, and advanced to the second part of duodenum. The upper GI endoscopy was accomplished without difficulty. The patient tolerated the procedure well. Findings: The esophagus was normal. The stomach was normal. The examined duodenum was normal. Impression: - Normal esophagus. - Normal stomach. - Normal examined duodenum. - No specimens collected. Recommendation: - Return patient to [facility] for ongoing care. - Advance diet as tolerated. - Continue present medications. Nik Charles DO 08/17/2017 5:58:26 PM This report has been signed electronically. Note Initiated On: 08/14/2017 1:57 PM I attest to the content of the Intraoperative Record and orders documented therein, exceptions below
== END 2017-08-14 19:10 | disposition home or self-care (01) ==
LOC: EDBD 14:23 → C.EDB 14:25 → C.MED 18:01 → ENRESERV 18:33
PROVIDERS: ADMIT Family Medicine; ATTEND Family Medicine
DX: R07.2 Precordial pain (principal); R63.4 Abnormal weight loss; G47.00 Insomnia, unspecified; E78.5 Hyperlipidemia, unspecified; Z90.49 Acquired absence of other specified parts of digestive tract; Z90.710 Acquired absence of both cervix and uterus; Z90.722 Acquired absence of ovaries, bilateral; Z90.79 Acquired absence of other genital organ(s); Z86.73 Personal history of transient ischemic attack (TIA), and cerebral infarction without residual deficits; Z87.891 Personal history of nicotine dependence; Z82.49 Family history of ischemic heart disease and other diseases of the circulatory system